=== PATIENT | female | born 1990 | race Caucasian/White ===

== ENCOUNTER 2017-06-23 20:47 | Emergency (ER) | payer OTHER ==
[2017-06-23 21:00] VITALS: BP 119/71
--- NOTE | 2017-06-23 21:53 | UC ---
Mare Dobbs Gabriel, scribed for Yaz Sanchez MD on 06/23/17 at 2129 . Abdominal Pain Female HPI - HPI Summary HPI Summary: This patient is a 26 year old F presenting to [facility] with a chief complaint of ABD pain/cramping since today at 1100. The patient rates the intermittent cramping pain 4/10 in severity. Patient reports mild intermittent dizziness, , ABD cramping, vaginal discharge, nausea, and diarrhea. Patient denies vaginal bleeding. PT reports mild discharge x 2 weeks. No vaginal itching , burning, odor. Patient is currently 8 weeks - has not had ultrasound for first OB appt. During her last she was taking fertility treatments and the child was born a month early, she has had no treatments this time. LNMP was April 25 and she had a yeast infection 3 weeks ago. Pt's medications reviewed this visit - History of Current Complaint Chief Complaint: UCAbdominalPain Stated Complaint: ABDOMINAL PAIN Time Seen by Provider: 06/23/17 20:53 Hx Obtained From: Patient Hx Last Menstrual Period: 04/18/16 Onset/Duration: Lasting Hours, Still Present Timing: Intermittent Episodes Lasting: Severity Initially: Mild Severity Currently: Mild Pain Intensity: 4 Pain Scale Used: 0-10 Numeric Associated Signs and Symptoms: Positive: Other: - dizziness, WELLS, cramping ABD, vaginal discharge, nausea, and diarrhea. Allergies/Adverse Reactions: Allergies Allergy/AdvReac Type Severity Reaction Status Date / Time Penicillins [PCN] Allergy Rash Verified 06/23/17 20:59 Home Medications: Home Medications Vitamin [Calna] 1 tab PO 06/23/17 [History] PMH/Surg Hx/FS Hx/Imm Hx Previously Healthy: Yes Other History Of: Negative For: HIV, Hepatitis B - Surgical History Surgical History: Yes Surgery Procedure, Year, and Place: gallbladder. disc surgery. lithotripsy. uterine polyps - Family History Known Family History: Negative: Cardiac Disease, Hypertension, Respiratory Disease, Seizure Disorder Family History: no cardio vascular issues in family lineage - Social History Occupation: Employed Full-time Lives: With Family Alcohol Use: None Substance Use Type: None Smoking Status (MU): Never Smoked Tobacco Amount Used/How Often: 2 cigs per week Review of Systems Constitutional: Negative Skin: Negative Eyes: Negative ENT: Negative Respiratory: Negative Gastrointestinal: Abdominal Pain, Diarrhea, Nausea Genitourinary: Other - vaginal discharge Neurological: Headache, Other - dizziness All Other Systems Reviewed And Are Negative: Yes Physical Exam Triage Information Reviewed: Yes Appearance: Well-Appearing, No Pain Distress, Well-Nourished Vital Signs: Initial Vital Signs Temp 99.0 F 06/23/17 20:55 Pulse 93 06/23/17 20:55 Resp 18 06/23/17 20:55 BP 119/71 06/23/17 20:55 Pulse Ox 100 06/23/17 20:55 Vital Signs Reviewed: Yes Eye Exam: Normal Eyes: Positive: Conjunctiva Clear ENT Exam: Normal ENT: Positive: Hearing grossly normal Neck exam: Normal Neck: Positive: Supple, Nontender, No Lymphadenopathy Respiratory Exam: Normal Respiratory: Positive: Chest non-tender, Lungs clear, Normal breath sounds, No respiratory distress, No accessory muscle use Cardiovascular Exam: Normal Cardiovascular: Positive: RRR, No Murmur, Pulses Normal Abdomen Description: Positive: Other: - abd soft +BS no guarding, no distension pelvic: no external lesion no odor scant, thin white discharge in vault no bleeding os closed no CMT os closed on bimanual Pt mild tender over right ovary. no massess appreciated Abd Pain Female Course/Dx - Course Course Of Treatment: Pt 8 week with intermittent lower abdominal cramping and nausea today. Pt denies vaginal bleeding. states mild episodes of dizziness. pt here with sister. pelvic exam complete - no blood, os closed. cultures taken. spoke with dr. Grullon in ED - pt will go by POV for further eval. pt will take pelvic samples with her - order in ED for testing. pt comfortable and in agreement with plan. sister with pt - Differential Dx/Diagnosis Provider Diagnoses: abdominal pain in Discharge - Discharge Plan Condition: Stable Disposition: OTHER Discharge Disposition Comment: POV to ED for further eval Patient Education Materials: Abdominal Pain in (ED) Referrals: Sheldon Pruitt [Primary Care Provider] - Additional Instructions: The doctor evaluated you today recommends you go directly to the emergency department for futher evaluation. This will likely include blood work and an ultrasound. Bring the bag with specimens with you to the hospital for testing. If you symptoms increase or you have ANY changes enroute, pipe puller and call 911 The documentation as recorded by the Mare pal Gabriel accurately reflects the service I personally performed and the decisions made by me, Yaz Sanchez MD.
== END 2017-06-23 21:53 ==
LOC: UCEAST 20:47
DX: O26.891 Other specified pregnancy related conditions, first trimester (principal); Z3A.08 8 weeks gestation of pregnancy; R10.9 Unspecified abdominal pain
CPT/HCPCS: 99212; G0463

== ENCOUNTER 2017-06-23 22:16 | Emergency (ER) | payer OTHER ==
[2017-06-24 00:30] LABS: ABS Basophils 0.1 10^3/ul (0-0.2); ABS Eosinophils 0.1 10^3/ul (0-0.6); ABS Monocytes 0.7 10^3/ul (0-0.8); ABS Neutrophils 9.6 10^3/ul (1.5-7.7); ABS Nucleated RBC 0 10^3/ul; Eosinophil % 0.6 % (0-6); Hematocrit 39 % (35-47); Hemoglobin 12.8 g/dl (12.0-16.0); Lymphocyte % 22.4 % (25-47); Mean Corpuscular HGB Conc 33 g/dl (31-36); Mean Corpuscular Hemoglobin 27 pg (27-31); Mean Corpuscular Volume 80 fL (80-97); Mean Platelet Volume 9 um3 (7.4-10.4); Nucleated Red Blood Cells % 0; Platelet Count 179 10^3/ul (150-450); Red Blood Count 4.83 10^6/ul (4.0-5.4); Red Cell Distribution Width 14 % (10.5-15); White Blood Count 13.5 10^3/ul (3.5-10.8)
--- NOTE | 2017-06-24 00:37 | ED ---
- HPI Summary HPI Summary: 26F apr 25 at 8 weeks presents with cramping today. She states she has been having intermittent nausea. She vomited last night but is not currently nauseous. She denies any fever. She denies any recent illness. She states pain is 4/10 at worst. She states she has been having vaginal discharge for past couple weeks. She denies any foul odor or itching. She admits to diarrhea yesterday. She denies any vaginal bleeding. She admits to intermittent dizziness. She denies any headache. She denies any change in appetite. She had pelvic done at with cultures. - History of Current Complaint Pain Intensity: 4 - Assessment Hx Now: Yes <Olga Fitch - Last Filed: 06/24/17 02:51> <Manuel Merritt - Last Filed: 06/24/17 20:42> - History of Current Complaint Chief Complaint: EDOBProblems Stated Complaint: 8 WKS PREG /CRAMPING Time Seen by Provider: 06/24/17 00:25 - Allergies/Home Medications Allergies/Adverse Reactions: Allergies Allergy/AdvReac Type Severity Reaction Status Date / Time Penicillins [PCN] Allergy Rash Verified 06/23/17 22:33 PMH/Surg Hx/FS Hx/Imm Hx Endocrine/Hematology History: Denies: Hx Anticoagulant Therapy Cardiovascular History: Denies: Hx Myocardial Infarction - Surgical History Surgery Procedure, Year, and Place: gallbladder. disc surgery. lithotripsy. uterine polyps - Immunization History Date of Influenza Vaccine: 02/2017 Infectious Disease History: No Infectious Disease History: Denies: Traveled Outside the [place] in Last 30 Days - Family History Known Family History: Positive: None Negative: Cardiac Disease, Hypertension, Respiratory Disease, Seizure Disorder, Blood Disorder Family History: no cardio vascular issues in family lineage - Social History Alcohol Use: None Substance Use Type: Reports: None Smoking Status (MU): Never Smoked Tobacco Amount Used/How Often: 2 cigs per week <Olga Fitch - Last Filed: 06/24/17 02:51> Review of Systems Negative: Fever Negative: Chest Pain Negative: Shortness Of Breath Positive: Abdominal Pain. Negative: Vomiting, Nausea All Other Systems Reviewed And Are Negative: Yes <Olga Fitch - Last Filed: 06/24/17 02:51> Physical Exam - Physical Exam Triage Information Reviewed: Yes Vital Signs Reviewed: Yes Appearance: Positive: Well-Appearing Skin: Positive: Warm, Dry Head/Face: Positive: Normal Head/Face Inspection Eyes: Positive: Normal, Conjunctiva Clear Respiratory/Lung Sounds: Positive: Clear to Auscultation, Breath Sounds Present Cardiovascular: Positive: Normal, RRR Abdomen Description: Positive: Nontender, Soft Bowel Sounds: Positive: Present Neurological: Positive: Normal Psychiatric: Positive: Normal <Olga Fitch - Last Filed: 06/24/17 02:51> Diagnostics - Vital Signs Vital Signs Temp Pulse Resp BP Pulse Ox 06/23/17 22:29 99.5 F 90 18 116/78 98 - Laboratory Lab Results: Lab Results 06/24/17 06/24/17 Range/Units 00:15 00:15 WBC 13.5 H (3.5-10.8) 10^3/ul RBC 4.83 (4.0-5.4) 10^6/ul Hgb 12.8 (12.0-16.0) g/dl Hct 39 (35-47) % MCV 80 (80-97) fL MCH 27 (27-31) pg MCHC 33 (31-36) g/dl RDW 14 (10.5-15) % Plt Count 179 (150-450) 10^3/ul MPV 9 (7.4-10.4) um3 Neut % (Auto) 71.3 (38-83) % Lymph % (Auto) 22.4 L (25-47) % [place] % (Auto) 5.2 (1-9) % Eos % (Auto) 0.6 (0-6) % Baso % (Auto) 0.5 (0-2) % Absolute Neuts (auto) 9.6 H (1.5-7.7) 10^3/ul Absolute Lymphs (auto) 3.0 (1.0-4.8) 10^3/ul Absolute Monos (auto) 0.7 (0-0.8) 10^3/ul Absolute Eos (auto) 0.1 (0-0.6) 10^3/ul Absolute Basos (auto) 0.1 (0-0.2) 10^3/ul Absolute Nucleated RBC 0 10^3/ul Nucleated RBC % 0 Blood Type O Positive Result Diagrams: 06/24/17 00:15 06/24/17 00:15 Lab Statement: Any lab studies that have been ordered have been reviewed, and results considered in the medical decision making process. - Ultrasound No standard instances Ultrasound Interpretation: Positive (See Comments) - single live intrauterine , gestation age 8 weeks 3 days, heart rate 161, close cervix. swubchornic hemorrhage. Ultrasound Interpretation Completed By: Radiologist <Olga Fitch - Last Filed: 06/24/17 02:51> - Vital Signs Vital Signs Temp Pulse Resp BP Pulse Ox 06/24/17 02:00 36.7 C 90 16 124/57 98 06/23/17 22:29 37.5 C 90 18 116/78 98 - Laboratory Lab Results: Lab Results 06/23/17 06/24/17 06/24/17 Range/Units 21:42 00:15 00:15 WBC (3.5-10.8) 10^3/ul RBC (4.0-5.4) 10^6/ul Hgb (12.0-16.0) g/dl Hct (35-47) % MCV (80-97) fL MCH (27-31) pg MCHC (31-36) g/dl RDW (10.5-15) % Plt Count (150-450) 10^3/ul MPV (7.4-10.4) um3 Neut % (Auto) (38-83) % Lymph % (Auto) (25-47) % [place] % (Auto) (1-9) % Eos % (Auto) (0-6) % Baso % (Auto) (0-2) % Absolute Neuts (auto) (1.5-7.7) 10^3/ul Absolute Lymphs (auto) (1.0-4.8) 10^3/ul Absolute Monos (auto) (0-0.8) 10^3/ul Absolute Eos (auto) (0-0.6) 10^3/ul Absolute Basos (auto) (0-0.2) 10^3/ul Absolute Nucleated RBC 10^3/ul Nucleated RBC % INR (Anticoag Therapy) 0.94 (0.77-1.02) APTT 30.7 (26.0-36.3) seconds Sodium (133-145) mmol/L Potassium (3.5-5.0) mmol/L Chloride (101-111) mmol/L Carbon Dioxide (22-32) mmol/L Anion Gap (2-11) mmol/L BUN (6-24) mg/dL Creatinine (0.51-0.95) mg/dL Est GFR ( Amer) (>60) Est GFR (Non-Af Amer) (>60) BUN/Creatinine Ratio (8-20) Glucose (70-100) mg/dL Calcium (8.6-10.3) mg/dL Total Bilirubin (0.2-1.0) mg/dL AST (13-39) U/L ALT (7-52) U/L Alkaline Phosphatase (34-104) U/L Total Protein (6.4-8.9) g/dL Albumin (3.2-5.2) g/dL Globulin (2-4) g/dL Albumin/Globulin Ratio (1-3) Beta HCG, Quant mIU/mL Urine Color Urine Appearance Urine pH (5-9) Ur Specific [place] (1.010-1.030) Urine Protein (Negative) Urine Ketones (Negative) Urine Blood (Negative) Urine Nitrate (Negative) Urine Bilirubin (Negative) Urine Urobilinogen (Negative) Ur Leukocyte Esterase (Negative) Urine Glucose (Negative) C.trachomatis (Amp Det) Pending N.gonorrhoeae (Amp Det) Pending T.vaginalis (Amp Det) Negative (Negative) Blood Type O Positive 06/24/17 06/24/17 06/24/17 Range/Units 00:15 00:15 01:50 WBC 13.5 H (3.5-10.8) 10^3/ul RBC 4.83 (4.0-5.4) 10^6/ul Hgb 12.8 (12.0-16.0) g/dl Hct 39 (35-47) % MCV 80 (80-97) fL MCH 27 (27-31) pg MCHC 33 (31-36) g/dl RDW 14 (10.5-15) % Plt Count 179 (150-450) 10^3/ul MPV 9 (7.4-10.4) um3 Neut % (Auto) 71.3 (38-83) % Lymph % (Auto) 22.4 L (25-47) % [place] % (Auto) 5.2 (1-9) % Eos % (Auto) 0.6 (0-6) % Baso % (Auto) 0.5 (0-2) % Absolute Neuts (auto) 9.6 H (1.5-7.7) 10^3/ul Absolute Lymphs (auto) 3.0 (1.0-4.8) 10^3/ul Absolute Monos (auto) 0.7 (0-0.8) 10^3/ul Absolute Eos (auto) 0.1 (0-0.6) 10^3/ul Absolute Basos (auto) 0.1 (0-0.2) 10^3/ul Absolute Nucleated RBC 0 10^3/ul Nucleated RBC % 0 INR (Anticoag Therapy) (0.77-1.02) APTT (26.0-36.3) seconds Sodium 135 (133-145) mmol/L Potassium 3.8 (3.5-5.0) mmol/L Chloride 103 (101-111) mmol/L Carbon Dioxide 24 (22-32) mmol/L Anion Gap 8 (2-11) mmol/L BUN 11 (6-24) mg/dL Creatinine 0.62 (0.51-0.95) mg/dL Est GFR ( Amer) 152.1 (>60) Est GFR (Non-Af Amer) 118.3 (>60) BUN/Creatinine Ratio 17.7 (8-20) Glucose 98 (70-100) mg/dL Calcium 9.5 (8.6-10.3) mg/dL Total Bilirubin 0.50 (0.2-1.0) mg/dL AST 12 L (13-39) U/L ALT 10 (7-52) U/L Alkaline Phosphatase 76 (34-104) U/L Total Protein 7.5 (6.4-8.9) g/dL Albumin 3.9 (3.2-5.2) g/dL Globulin 3.6 (2-4) g/dL Albumin/Globulin Ratio 1.1 (1-3) Beta HCG, Quant 16624.00 mIU/mL Urine Color Tita Urine Appearance Clear Urine pH 5.0 (5-9) Ur Specific [place] 1.028 (1.010-1.030) Urine Protein Negative (Negative) Urine Ketones 1+ H (Negative) Urine Blood Negative (Negative) Urine Nitrate Negative (Negative) Urine Bilirubin Negative (Negative) Urine Urobilinogen Negative (Negative) Ur Leukocyte Esterase Negative (Negative) Urine Glucose Negative (Negative) C.trachomatis (Amp Det) N.gonorrhoeae (Amp Det) T.vaginalis (Amp Det) (Negative) Blood Type Result Diagrams: 06/24/17 00:15 06/24/17 00:15 Lab Statement: Any lab studies that have been ordered have been reviewed, and results considered in the medical decision making process. <Manuel Merritt - Last Filed: 06/24/17 20:42> Course/Dx - Course Course Of Treatment: 26F apr 25 at 8 weeks presents with cramping today. She states she has been having intermittent nausea. She vomited last night but is not currently nauseous. She denies any fever. She denies any recent illness. She states pain is 4/10 at worst. She states she has been having vaginal discharge for past couple weeks. She denies any foul odor or itching. She admits to diarrhea yesterday. She denies any vaginal bleeding. She admits to intermittent dizziness. She denies any headache. She denies any change in appetite. She had pelvic done at with cultures. on exam abdomen soft nontender. u/s shows single live intrauterine . hcg [id number]. told to follow up with obgyn. patient understand and agrees with plan. - Differential Diagnosis/HQI/PQRI: Spontaneous , Threatened , Intrauterine <Olga Fitch - Last Filed: 06/24/17 02:51> <Manuel Merritt - Last Filed: 06/24/17 20:42> - Diagnoses Provider Diagnoses: Abdominal pain during in first trimester Discharge <Olga Fitch - Last Filed: 06/24/17 02:51> <Manuel Merritt - Last Filed: 06/24/17 20:42> - Discharge Plan Condition: Good Disposition: HOME Patient Education Materials: First Trimester (ED) Referrals: Sheldon Pruitt [Primary Care Provider] - Additional Instructions: Follow up with obgyn as may need to trend HCG levels Take tyenlol for pain every 6 hours Return to ED if develop any new or worsening symptoms
[2017-06-24 00:41] LABS: INR 0.94 (0.77-1.02)
[2017-06-24 00:42] LABS: EGFR Non-African American 118.3 (>60)
[2017-06-24 02:11] VITALS: BP 124/57
[2017-06-24 02:14] LABS: Urine Appearance Clear; Urine Blood Negative (Negative); Urine Color Amber; Urine Ketones 1+ (Negative); Urine Protein Negative (Negative); Urine Specific Gravity 1.028 (1.010-1.030); Urine Urobilinogen Negative (Negative)
--- NOTE | 2017-06-24 08:00 | RAD ---
HISTORY: Pelvic cramping in a woman who reports being 8 weeks . Last menstrual period is April 25, 2018. COMPARISONS: None TECHNIQUE: Multiple transverse and longitudinal ultrasound images were obtained of the pelvis using grayscale, color flow, spectral and M-mode sonographic imaging. FINDINGS: UTERUS: The uterus is normal in shape, size, contour, and echotexture. GESTATION: There is a single live intrauterine gestation. The crown-rump length measures 1.9 cm yielding a gestational age of 8 weeks and 3 days. The mean gestational sac diameter measures 3.0 centimeters yielding a gestational age of 8 weeks and 2 days. cardiac motion is detected at a rate of 161 beats per minute. There is an anechoic and avascular subchorionic fluid collection measuring approximately 1.2 x 1.1 x 1.1 cm. CUL-DE-SAC: There is no free fluid within the cul-de-sac. RIGHT OVARY: The right ovary measures 2.6 x 1.5 x 1.4 cm. LEFT OVARY: The left ovary measures 4.3 x 2.5 x 2.3 cm. IMPRESSION: 1. Single live intrauterine gestation with a crown-rump length yielding a gestational age of 8 weeks and 3 days. 2. Small subchorionic hemorrhage measuring 1.2 x 1.1 x 1.1 cm.
== END 2017-06-24 02:00 | disposition home or self-care (01) ==
LOC: ED 22:16
DX: O26.891 Other specified pregnancy related conditions, first trimester (principal); Z3A.08 8 weeks gestation of pregnancy; R42 Dizziness and giddiness; R11.10 Vomiting, unspecified
CPT/HCPCS: 36415; 76817; 80053; 81003; 84702; 85025; 85610; 85730; 86900; 86901; 87480; 87491; 87510; 87591; 87661; 99282

== ENCOUNTER 2017-11-22 09:35 | Emergency (ER) | payer OTHER ==
[2017-11-22 09:50] VITALS: BP 125/62
--- NOTE | 2017-11-22 10:48 | UC ---
Throat Pain/Nasal Sandor HPI - HPI Summary HPI Summary: 26 y/o female presents to the urgent care c/o sore throat and B/L ear pain for the past 3 days. Pt states pain w/ swallowing is 8/10. She also has clear nasal discharge. Pt has Hx of seasonal allergies. Pt has not taking anything to alleviate symptom. Pt denies fever, WELLS, rash, abdominal pain, N/V/ D. SOB chest pain. - History of Current Complaint Chief Complaint: UCGeneralIllness Stated Complaint: SORE THROAT Time Seen by Provider: 11/22/17 10:43 Hx Obtained From: Patient Hx Last Menstrual Period: Onset/Duration: Gradual Onset, Lasting Days - 3 days, Still Present, Worse Since - today Severity: Moderate Pain Intensity: 8 Pain Scale Used: 0-10 Numeric Cough: None Associated Signs & Symptoms: Positive: Sinus Discomfort, Nasal Discharge, Other - B/L ear pain Related History: Seasonal Allergies - Epiglottits Risk Factors Epiglottis Risk Factors: Negative - Allergies/Home Medications Allergies/Adverse Reactions: Allergies Allergy/AdvReac Type Severity Reaction Status Date / Time Penicillins Allergy Rash Verified 11/22/17 09:51 PMH/Surg Hx/FS Hx/Imm Hx Previously Healthy: Yes - Pt denies PMHX Other History Of: Negative For: HIV, Hepatitis B, Anticoagulant Therapy - Surgical History Surgical History: Yes Surgery Procedure, Year, and Place: gallbladder. disc surgery. lithotripsy. uterine polyps - Family History Known Family History: Positive: Hypertension, Diabetes Negative: Cardiac Disease, Respiratory Disease, Seizure Disorder, Blood Disorder Family History: no cardio vascular issues in family lineage - Social History Occupation: Employed Full-time Lives: With Family Alcohol Use: None Substance Use Type: None Smoking Status (MU): Never Smoked Tobacco Amount Used/How Often: 2 cigs per week Review of Systems Constitutional: Negative Skin: Negative Eyes: Negative ENT: Sore Throat, Ear Ache - B/L ear pain, Nasal Discharge, Sinus Congestion, Sinus Pain/Tenderness Respiratory: Negative Cardiovascular: Negative Gastrointestinal: Negative Genitourinary: Negative Motor: Negative Neurovascular: Negative Musculoskeletal: Negative Neurological: Negative Psychological: Negative Is Patient Immunocompromised?: No All Other Systems Reviewed And Are Negative: Yes Physical Exam - Summary Physical Exam Summary: Vitals: reviewed General: Well developed, well-nourished female patient with NAD. Head and face: Normocephalic and atraumatic, Positive tenderness over the frontal and maxillary sinuses.. Eyes: PERRLA, EOMI x 2. Normal conjunctiva. No eye discharge. ENT: Ears and TM with normal limits. Nose: edematous and erythematous nasal mucosa with with yellowish discharge and erythematous mucosa. Pharynx with erythema, no exudate. Neck: Supple, no JVD, no carotid bruits and no lymphadenopathy. Lungs: clear, no rales, no rhonchi, no wheezes. CVS: RRR, S1 and S2 present no murmurs or gallops appreciated. Abdomen: soft nontender with positive bowel sounds. Extremities: no edema noted. Neuro: WNL. Skin: warm and dry Triage Information Reviewed: Yes Vital Signs: Initial Vital Signs Temp 98.3 F 11/22/17 09:48 Pulse 91 11/22/17 09:48 Resp 18 11/22/17 09:48 BP 125/62 11/22/17 09:48 Pulse Ox 99 11/22/17 09:48 Throat Pain/Nasal Course/Dx - Course Course Of Treatment: 26 y/o female presents to the urgent care c/ o sore throat and B/L ear pain for the past 3 days. Pt states pain w/ swallowing is 8/10. She also has clear nasal discharge. Pt has Hx of seasonal allergies. Pt has not taking anything to alleviate symptom. Pt denies fever, WELLS , rasn, abdominal pain, N/V/D. SOB chest pain.Hx obtained. Pt w/ pharyngitis and rhinosinusitis on examination. Rapid strep ordered: negative. Pt advised to take Tylenol PO to alleviates symptoms of pain and swelling. Rx floanse nasal spray to clear sinuses. Pt advised to rest, eat well and avoid strenuous exercise. If symptoms do not improve or worsen advised to return to the urgent care or f/u with her PCP for further evaluation and treatment. Pt understood and agreed w/ D/C instructions. - Differential Dx/Diagnosis Differential Diagnosis/HQI/PQRI: Laryngitis, Mononucleosis, Otitis Media, Pharyngitis, Tonsillitis, URI Provider Diagnoses: 1-Acute viral pharyngitis. 2-Rhinosinusitis Discharge - Sign-Out/Discharge Documenting (check all that apply): Discharge/Admit/Transfer - D/C home - Discharge Plan Condition: Stable Disposition: HOME Prescriptions: Fluticasone NASAL SPRAY 50MCG* [Flonase NASAL SPRAY 50MCG*] 2 spray BOTH NARES DAILY #1 btl Patient Education Materials: Pharyngitis (ED), Sinusitis (ED) Forms: *Work Release Referrals: Bassam GIL,Sheldon Villavicencio [Primary Care Provider] - 2 Days Additional Instructions: 1- Please increase fluid intake and rest. 2-Use Flonase nasal spray and saline drops as directed to help drain fluid and clear sinuses 3-Take Acetaminophen for fever and pain. 4-Return to the clinic or call your PCP in 2-3 days if symptoms do not improve. 5- Strep test negative - Billing Disposition and Condition Condition: STABLE Disposition: Home
== END 2017-11-22 11:20 | disposition home or self-care (01) ==
LOC: UCEAST 09:35
DX: J02.8 Acute pharyngitis due to other specified organisms (principal); J32.9 Chronic sinusitis, unspecified; Z88.0 Allergy status to penicillin; Z72.0 Tobacco use; Z82.49 Family history of ischemic heart disease and other diseases of the circulatory system; Z83.3 Family history of diabetes mellitus
CPT/HCPCS: 87651; 99212; G0463

== ENCOUNTER 2018-01-31 06:43 | Inpatient (IN) | payer OTHER ==
[2018-01-31 08:11] LABS: Hematocrit 32 % (35-47); Hemoglobin 10.9 g/dl (12.0-16.0); Mean Corpuscular HGB Conc 34 g/dl (31-36); Mean Corpuscular Hemoglobin 27 pg (27-31); Mean Corpuscular Volume 79 fL (80-97); Mean Platelet Volume 10.9 um3 (7.4-10.4); Platelet Count 114 10^3/ul (150-450); Red Blood Count 4.04 10^6/ul (4.00-5.40); Red Cell Distribution Width 15 % (10.5-15); White Blood Count 10.6 10^3/ul (3.5-10.8)
--- NOTE | 2018-01-31 09:28 | HP ---
General Information - General Information Maternal Age: 27 Grav: 2 Para: 1 SAB: 0 IEA: 0 Estimated Due Date: 01/30/18 Determined By: LMP Maternal Blood Type and Rh: O Positive - Results this Serology/RPR Result: Non-Reactive Rubella Result: Immune HBsAg Result: Negative HIV Result: Negative GBS Culture Result: Negative Past Medical History Delivery History: Hx Uncomplicated Vaginal Delivery Pertinent Past Medical History: See Records Pertinent Past Surgical History: See Records Pertinent Family History: Non-Contributory - Antepartal Records Antepartal Records: Reviewed, Complicated by: - obesity Review of Systems Constitutional: Comfortable CV Complaint: No Respiratory: Shortness of Breath: No Gastrointestinal: No Nausea/Vomiting Genitourinary: No Dysuria, No Bleeding, No Leaking Fluid Musculoskeletal: No Complaint Neurological: No Headache Movement: Normal Exam Allergies/Adverse Reactions: Allergies Penicillins Allergy (Verified 11/22/17 09:51) Rash Vital Signs 01/31/18 07:15 Temperature 98.9 F Pulse Rate 65 Respiratory 18 Rate Blood Pressure 130/81 (mmHg) O2 Sat by Pulse 100 Oximetry Lab Values - Entire Visit: Laboratory Tests 01/31/18 01/31/18 07:38 07:38 WBC 10.6 RBC 4.04 Hgb 10.9 L Hct 32 L MCV 79 L MCH 27 MCHC 34 RDW 15 Plt Count 114 L MPV 10.9 H Blood Type O Positive Antibody Screen Negative - Measurements Height: 5 ft 3 in Weight: 309 lb Weight in lbs: [phone] Body Mass Index (BMI): 54.7 Pre- Weight: 286 lb Weight Gained This : 23 lbs and 0 ozs - Abdominal Exam Abdomen Exam: Non-Tender - Ultrasound/Biophysical Profile Ultrasound Status: Not Done Targeted Exam Findings Cervical Exam: 2cm Effacement: 80% Station: -2 Presenting Part: Vertex Membrane Status: Intact EFM Findings - External Monitor Findings Baseline Heart Rate: 140 External Monitor Findings: Accelerations Present, Variability Moderate Contractions: Mild - q 3-4 ' Assessment/Plan - Obstetrical Risk Factors Obstetrical Risk Factors: Obesity - Plan Plan: Admit - Anticipate Vaginal Delivery - will augment labor with pitocin
[2018-01-31] MEDS ORDERED: Oxytocin in LR* 20 UNITS/1,000 ML BAG IVPB ONE (09:36)
[2018-01-31] MEDS ORDERED: Oxytocin in LR* 20 UNITS/1,000 ML BAG IVPB SCH ×2 (10:00→18:00)
[2018-01-31] MEDS ORDERED: OBEPIDURAL* 250 ML EPIDURAL ONE (14:35)
[2018-01-31] MEDS ORDERED: fentaNYL* 50 MCG/ML 2 ML VIAL (100 MCG VIAL) ONE (14:46)
[2018-01-31] MEDS ORDERED: Sodium Citrate/Citric Acid* 15 ML UDC PO PRN (15:49)
[2018-01-31] MEDS ORDERED: Famotidine TAB* 20 MG PO PRN (15:49)
[2018-01-31] MEDS ORDERED: Phenylephrine IV* 40 MCG/ML 10 ML SYRINGE IV PUSH PRN ×2 (15:49)
[2018-01-31] MEDS ORDERED: OBEPIDURAL* 250 ML EPIDURAL SCH (16:00)
[2018-01-31] MEDS ORDERED: Witch Hazel PAD* JAR TOPICAL PRN (17:08)
[2018-01-31] MEDS ORDERED: Glycerin ADULT SUPP PR PRN (17:08)
[2018-01-31] MEDS ORDERED: Dibucaine 1% 28.35 GM TUBE PR PRN (17:08)
[2018-01-31] MEDS ORDERED: Simethicone TAB* 80 MG TAB.CHEW PO SCH (17:30)
[2018-01-31] MEDS: Ibuprofen TAB* 600 MG PO PRN (19:25)
[2018-01-31] MEDS: Docusate CAP* 100 MG PO SCH (20:20)
[2018-02-01] MEDS: Acetaminophen TAB* 325 MG PO PRN ×3 (00:24→20:02)
[2018-02-01] MEDS: Ibuprofen TAB* 600 MG PO PRN ×4 (03:30→23:46)
[2018-02-01 07:42] LABS: ABS Basophils 0.1 10^3/ul (0-0.2); ABS Eosinophils 0.1 10^3/ul (0-0.6); ABS Lymphocytes 3.1 10^3/ul (1.0-4.8); ABS Monocytes 0.7 10^3/ul (0-0.8); ABS Nucleated RBC 0 10^3/ul; Eosinophil % 0.7 % (0-6); Hematocrit 30 % (35-47); Hemoglobin 10.1 g/dl (12.0-16.0); Lymphocyte % 26.1 % (25-47); Mean Corpuscular HGB Conc 33 g/dl (31-36); Mean Corpuscular Hemoglobin 26 pg (27-31); Mean Corpuscular Volume 79 fL (80-97); Mean Platelet Volume 10.8 um3 (7.4-10.4); Nucleated Red Blood Cells % 0.1; Platelet Count 98 10^3/ul (150-450); Red Blood Count 3.83 10^6/ul (4.00-5.40); Red Cell Distribution Width 15 % (10.5-15)
[2018-02-01] MEDS ORDERED: Ferrous Gluconate TAB* 324 MG TAB PO SCH (09:00)
[2018-02-01] MEDS ORDERED: PRENATAL VITAMIN PO SCH (09:00)
[2018-02-01] MEDS: Docusate CAP* 100 MG PO SCH ×3 (10:01→20:02)
[2018-02-02] MEDS: Acetaminophen TAB* 325 MG PO PRN (06:12)
[2018-02-02] MEDS: Ibuprofen TAB* 600 MG PO PRN (06:13)
[2018-02-02 06:21] LABS: Hematocrit 31 % (35-47); Hemoglobin 10.3 g/dl (12.0-16.0); Mean Corpuscular HGB Conc 34 g/dl (31-36); Mean Corpuscular Hemoglobin 27 pg (27-31); Mean Corpuscular Volume 80 fL (80-97); Mean Platelet Volume 10.9 um3 (7.4-10.4); Platelet Count 102 10^3/ul (150-450); Red Blood Count 3.85 10^6/ul (4.00-5.40); Red Cell Distribution Width 15 % (10.5-15)
[2018-02-02] MEDS: Docusate CAP* 100 MG PO SCH (08:38)
[2018-02-02 08:40] VITALS: BP 123/74
== END 2018-02-02 12:15 | disposition home or self-care (01) | DRG 775 ==
LOC: MCHOBOUT 06:43 → MCHOB 07:26
PROVIDERS: ADMIT Obstetrics & Gynecology; ATTEND Obstetrics & Gynecology
PROC: 10E0XZZ Delivery of Products of Conception, External Approach (ICD-10-PCS; principal; 2018-01-31)
PROC: 10907ZC Drainage of Amniotic Fluid, Therapeutic from Products of Conception, Via Natural or Artificial Opening (ICD-10-PCS; 2018-01-31)
PROC: 4A1H7FZ Monitoring of Products of Conception, Cardiac Rhythm, Via Natural or Artificial Opening (ICD-10-PCS; 2018-01-31)
PROC: 0HQ9XZZ Repair Perineum Skin, External Approach (ICD-10-PCS; 2018-01-31)
DX: O48.0 Post-term pregnancy (principal); Z68.43 Body mass index [BMI] 50.0-59.9, adult; Z3A.40 40 weeks gestation of pregnancy; O99.214 Obesity complicating childbirth; E66.9 Obesity, unspecified; O70.0 First degree perineal laceration during delivery; O99.344 Other mental disorders complicating childbirth; F41.8 Other specified anxiety disorders; O13.4 Gestational [pregnancy-induced] hypertension without significant proteinuria, complicating childbirth; Z37.0 Single live birth
CPT/HCPCS: 36415; 85025; 85027; 86850; 86900; 86901; A9270-GY; J3010

== ENCOUNTER 2018-03-08 08:34 | Emergency (ER) | payer OTHER ==
--- OUTSIDE RECORDS SUMMARY | 2018-03-08 08:39 | XMS REPORT ---
:1990 External Reference #:[id number] Author Organization [facility] Address [address] [place] [id number] Phone [phone] Care Team Providers Name Role Phone Helio Garcia M.D. Primary Care Physician Unavailable Payers Type Date Identification Numbers Payment Provider Subscriber Commercial Policy Number: [id number] [facility] Elza Montalvo PayID: [id number] [address] [place] [address] Problems Description No Information Family History Date Family Member(s) Problem(s) Comments Father Diabetes insulin dependent Father Hypertension Mother Asthma First Daughter A&W Second Daughter A&W First Sister A&W Second Sister A&W Paternal Grandfather A&W Paternal Grandmother due to Cancer () Maternal Grandfather due to Stroke () Maternal Grandmother due to dementia () Maternal Grandmother Parkinson's Disease Social History Type Date Description Comments Education Highest level completed, 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 Marital Status Lives With Daughters Pets 1 cat Pets 1 dog Occupation [employer] Cigarette Use Former Cigarette Smoker Quit 01/2017 ETOH Use Denies alcohol use Recreational Drug Use Denies Drug Use Daily Caffeine Consumes on average 1 cup of coffee per day Daily Caffeine Consumes on average 1 soda per day Seat Belt/Car Seat Always uses seat belt STD's Chlamydia Allergies, Adverse Reactions, Alerts Date Description Reaction Status Severity Comments 07/14/2017 Penicillin active Rash, Itchy hands Medications Medication Date Status Form Strength Qnty SIG Indications Ordering Provider Lexapro Active Tablets 10mg 30tabs take one Yaz 018 pill by carol Jenkins CNM daily. Butalbital/Yossi Active Tablets 50-325-40mg 14tabs take 1-2 Phaelon taminophen/Caf 018 tabs by MD Kaitlin feine mouth q6 hours as needed for headache Active 1 po qd Unknown Vitamin 000 Fluconazole Hx Tablets 150mg 1tabs take one Phaelon 018 - tab by MD Kaitlin mouth now 018 Immunizations CPT Code Status Date Vaccine Lot # [id number] Given 11/03/2017 Tetnus, Diptheria Toxoids And Acellular Pertussis, [id number] PT > 7Yrs Old Vital Signs Date Vital Result Comment 02/26/2018 BP Systolic 114 mmHg BP Diastolic 70 mmHg Height 63.5 inches 5'3.50" Weight 274.00 lb BMI (Body Mass Index) 47.8 kg/m2 Last Menstrual Period [id number] 2 Parity 2 02/12/2018 BP Systolic 122 mmHg BP Diastolic 84 mmHg Height 63.5 inches 5'3.50" Weight 227.00 lb BMI (Body Mass Index) 39.6 kg/m2 Last Menstrual Period 7549500 2 Parity 2 07/14/2017 BP Systolic 112 mmHg BP Diastolic 66 mmHg Height 63.5 inches 5'3.50" Weight 286.00 lb BMI (Body Mass Index) 49.9 kg/m2 Last Menstrual Period 5469308 2 Parity 1 Results Test Date Test Result H/L Range Note Total Protein 24HR Urine 01/28/2018 Urine Collection Time 24 hr 1 Urine Total Volume 1350 mL 1 Urine Random Total Protein 17 mg/dL 1 Urine Total Protein/24HR 229 mg/24Hr High 0-165 1 CBC Auto Diff 01/27/2018 White Blood Count 9.4 10^3/uL 3.5-10.8 Red Blood Count 4.20 10^6/uL 4.00-5.40 Hemoglobin 11.0 g/dL Low 12.0-16.0 Hematocrit 33 % Low 35-47 Mean Corpuscular Volume 79 fL Low 80-97 Mean Corpuscular Hemoglobin 26 pg Low 27-31 Mean Corpuscular HGB Conc 33 g/dL 31-36 Red Cell Distribution Width 15 % 10.5-15 Platelet Count 103 10^3/uL Low 150-450 Mean Platelet Volume 10.7 um3 High 7.4-10.4 Abs Neutrophils 6.8 10^3/uL 1.5-7.7 Abs Lymphocytes 1.9 10^3/uL 1.0-4.8 Abs Monocytes 0.6 10^3/uL 0-0.8 Abs Eosinophils 0 10^3/uL 0-0.6 Abs Basophils 0 10^3/uL 0-0.2 Abs Nucleated RBC 0 10^3/uL Granulocyte % 72.2 % 38-83 Lymphocyte % 20.6 % Low 25-47 Monocyte % 6.3 % 0-7 Eosinophil % 0.5 % 0-6 Basophil % 0.4 % 0-2 Nucleated Red Blood Cells % 0 Creatinine 01/27/2018 Creatinine 0.43 mg/dL Low 0.51-0.95 Egfr Non- 178.9 >60 Egfr 216.5 >60 2 Laboratory test finding 01/27/2018 Uric Acid 4.9 mg/dL 2.3-6.6 Alt (SGPT) 9 U/L 7-52 Ast (Sgot) 15 U/L 13-39 CBC With No Diff 01/20/2018 White Blood Count 9.8 10^3/uL 3.5-10.8 Red Blood Count 4.41 10^6/uL 4.00-5.40 Hemoglobin 11.5 g/dL Low 12.0-16.0 Hematocrit 35 % 35-47 Mean Corpuscular Volume 79 fL Low 80-97 Mean Corpuscular Hemoglobin 26 pg Low 27-31 Mean Corpuscular HGB Conc 33 g/dL 31-36 Red Cell Distribution Width 14 % 10.5-15 Platelet Count 111 10^3/uL Low 150-450 Mean Platelet Volume 11.0 um3 High 7.4-10.4 Laboratory test finding 12/28/2017 Group B Strep SEE RESULT BELOW 3 Culture Screen Laboratory test finding 11/03/2017 Glucose 1 HR Post 112 mg/dL 70-160 4 Prandial CBC With No Diff 11/03/2017 White Blood Count 10.1 10^3/uL 3.5-10.8 Red Blood Count 4.15 10^6/uL 4.0-5.4 Hemoglobin 11.3 g/dL Low 12.0-16.0 Hematocrit 34 % Low 35-47 Mean Corpuscular Volume 81 fL 80-97 Mean Corpuscular Hemoglobin 27 pg 27-31 Mean Corpuscular HGB Conc 34 g/dL 31-36 Red Cell Distribution Width 14 % 10.5-15 Platelet Count 119 10^3/uL Low 150-450 Mean Platelet Volume 10.9 um3 High 7.4-10.4 Lead 08/11/2017 Lead,Venous, B <1.0 5 HIV 1/2 AB Evaluation 08/11/2017 HIV 1 2 Antibody Nonreactive Nonreactive 6 Type And Screen 08/11/2017 Patient Blood Type O Positive Antibody Screen NEGATIVE CBC With No Diff 08/11/2017 White Blood Count 7.2 10^3/uL 3.5-10.8 Red Blood Count 4.27 10^6/uL 4.0-5.4 Hemoglobin 11.6 g/dL Low 12.0-16.0 Hematocrit 34 % Low 35-47 Mean Corpuscular Volume 80 fL 80-97 Mean Corpuscular Hemoglobin 27 pg 27-31 Mean Corpuscular HGB Conc 34 g/dL 31-36 Red Cell Distribution Width 13 % 10.5-15 Platelet Count 132 10^3/uL Low 150-450 Mean Platelet Volume 10 um3 7.4-10.4 PNL No Urine 08/11/2017 Rubella Screen Immune IU/mL Immune 7 Hemoglobin A1c 4.9 % 4.0-5.6 8 Hepatitis B Surface Ag Nonreactive Nonreactive 9 Syphillis Igg W/Reflex RPR Nonreactive Nonreactive 10 CF + Sma 08/11/2017 cystic fibrosis Negative spinal muscular atrophy Negative 11 PDF Report SEE IMAGE GC/Chlamydia Dna Probe 08/11/2017 Chlamydia trachomatis Rna Negative Negative Neisseria gonorrhoeae (GC) Rna Negative Negative Urine Drug Comp 20 Test 08/11/2017 Urine Amphetamine Negative ng/mL 12 Urine Barbiturates Negative ng/mL 13 Urine Benzodiazepines Negative ng/mL 14 Urine Cocaine Negative ng/mL 15 Urine Phencyclidine Negative ng/mL Cutoff: 25 Urine Tetrahydrocannabinol Negative ng/mL Cutoff: 50 16 Creatinine, Urine 179.1 mg/dL Specific Lander 1.016 pH 6.7 Oxidants Negative 17 Adulterants Comment Normal Codeine, Ur Not Detected ng/mL Cutoff: 25 18 Bliyydl-8-kkig-glucuronide, Ur Not Detected ng/mL 19 Morphine, Ur Not Detected ng/mL Cutoff: 25 20 Bmwcevoy-2-dodj-glucuronide, U Not Detected ng/mL 21 6-monoacetylmorphine, Ur Not Detected ng/mL Cutoff: 25 22 Hydrocodone, Ur Not Detected ng/mL Cutoff: 25 23 Norhydrocodone, Ur Not Detected ng/mL Cutoff: 25 24 Dihydrocodeine, Ur Not Detected ng/mL Cutoff: 25 25 Hydromorphone, Ur Not Detected ng/mL Cutoff: 25 26 Pnfktrjhrlivv6eypixupijjyachq Not Detected ng/mL 27 Oxycodone, Ur Not Detected ng/mL Cutoff: 25 28 Noroxycodone, Ur Not Detected ng/mL Cutoff: 25 29 Oxymorphone, Ur Not Detected ng/mL Cutoff: 25 30 Xxwanvtauhi-2-etvi-glucuronide Not Detected ng/mL 31 Noroxymorphone, Ur Not Detected ng/mL Cutoff: 25 32 Fentanyl, Ur Not Detected ng/mL Cutoff: 2 33 Norfentanyl, Ur Not Detected ng/mL Cutoff: 2 34 Meperidine, Ur Not Detected ng/mL Cutoff: 25 35 Normeperidine, Ur Not Detected ng/mL Cutoff: 25 36 Naloxone, Ur Not Detected ng/mL Cutoff: 25 37 Wpwlcoiy-1-yaaj-glucuronide, U Not Detected ng/mL 38 Methadone, Ur Not Detected ng/mL Cutoff: 25 39 Eddp, Ur Not Detected ng/mL Cutoff: 25 40 Propoxyphene, Ur Not Detected ng/mL Cutoff: 25 41 Norpropoxyphene, Ur Not Detected ng/mL Cutoff: 25 42 Tramadol, Ur Not Detected ng/mL Cutoff: 25 43 O-desmethyltramadol, Ur Not Detected ng/mL Cutoff: 25 44 Tapentadol, Ur Not Detected ng/mL Cutoff: 25 45 N-desmethyltapentadol, Ur Not Detected ng/mL Cutoff: 50 46 Txofdummob-hxzb-ufaoadcbxwf, U Not Detected ng/mL 47 Buprenorphine, Ur Not Detected ng/mL Cutoff: 5 48 Norbuprenorphine, Ur Not Detected ng/mL Cutoff: 5 49 Norbuprenorphine glucuronide Not Detected ng/mL Cutoff: 20 50 Opioid Interpretation See Comment 51 Laboratory test 07/14/2017 Cytology SEE RESULT BELOW 52 finding GC/Chlamydia Dna 07/14/2017 Chlamydia trachomatis Negative Negative Probe Rna Neisseria gonorrhoeae (GC) Rna Negative Negative Urine Culture And Sensitivities 07/14/2017 Urine Culture SEE RESULT BELOW 53 1 URINE COLLECTED FROM 01/27/18 1130-01/28/18 1130 2 Because ethnic data is not always readily available, this report includes an eGFR for both -Americans and non- Americans. The National Kidney Disease Education Program (NKDEP) does not endorse the use of the MDRD equation for patients that are not between the ages of 18 and 70, are , have extremes of body size, muscle mass, or nutritional status, or are non- or non-. According to the National Kidney Foundation, irrespective of diagnosis, the stage of the disease is based on the level of kidney function: Stage Description GFR(mL/min/1.73 m(2)) 1 Kidney damage with normal or decreased GFR 90 2 Kidney damage with mild decrease in GFR 60-89 3 Moderate decrease in GFR 30-59 4 Severe decrease in GFR 15-29 5 Kidney failure <15 (or dialysis) 3 SEE RESULT BELOW Name: ELZA MONTALVO : [address]: Dimitris Madrigal MD Acct: [id number] Unit: [id number] AGE: 27 Location: [facility] Re12/28/17 SEX: F Status: DEP REF SPEC: [id number] STACEY: 12/28/17-2341 [facility] DR: Dimitris Madrigal MD REQ: [id number] RECD: 12/28/17 STATUS: COMP OTHR DR: Sheldon Banegas [place] _ SOURCE: CER/VAG/RE SPDESC: ORDERED: Grp B Strp Scrn QUERIES: Is patient penicillin allergic and/or sensitivities needed? N Procedure Result Reported Site Group B Strep Culture Screen Final 12/30/17- 1115 ML Group B Strep Screen Negative * ML - Main Lab . END OF REPORT DEPARTMENT OF PATHOLOGY, [address] [place] [address] Everton Jaffe M.D. Director [facility] # [id number] Lead, Venous, B <1.0 mcg/dL 0.0-4.9 ADDITIONAL INFORMATION Testing performed by Inductively Coupled Plasma-Mass Spectrometry (ICP-MS). This test was developed and its performance characteristics determined by [facility] in a manner consistent with CLIA requirements. This test has not been cleared or approved by the U.S. Food and Drug Administration. Venous/Capillary Venous Patient Street Address [address] [facility] Patient 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 Health Care Provider Name DMITRIVALERIE [facility] Care Provider Street Address [address] [facility] Health Care Provider [facility] Care Provider [facility] Health Care Provider Zip Code [address] Health Care Provider Phone [phone] Submitting Laboratory Test Performed by: [address] [address] 6 It is recognized that currently available assays for the detection of antibodies to HIV-1 and/or HIV-2 may not detect all infected individuals. HIV antibodies may be undetectable in some stages of the infection and in some clinical conditions. The performance of this assay has not been established for populations of infants or children. Assayed by Chemiluminescence Microparticle Immunoassay on the Siemens Advia Centaur CP. Values obtained with different methods or kits cannot be used interchangeably.The diagnostic specificity of the ADVIA Centaur 1/O/2 Enhanced assay in the low risk population was 99.90% (6052/6058) with a 95% confidence interval of 99.78 to 99.96%. 7 [id number] 8 Therapeutic target for the treatment of diabetes mellitus patients is <7% HBA1C, and in selective patients <6.0%. Please refer to [place] [employer] Association diabetic care guidelines for further information. 9 [id number] 10 Warning: A positive result is not useful for establishing a diagnosis of syphilis. In most situations, such a result may reflect a prior treated infection; a negative result can exclude a diagnosis of syphilis except for incubating or early primary disease. 11 Negative result: Negative for [id number] SNP and SMN1: 2 copies. 12 REFERENCE VALUE Cutoff: 500 13 REFERENCE VALUE Cutoff: 200 14 REFERENCE VALUE Cutoff: 100 15 REFERENCE VALUE Cutoff: 150 16 ADDITIONAL INFORMATION This report is intended for use in clinical monitoring or management of patients. It is not intended for use in employment-related testing. 17 REFERENCE VALUE Cutoff: 200 mg/L 18 Tylenol 3 19 Metabolite of codeine REFERENCE VALUE Cutoff: 100 20 Rachael Madrid, Contin; Also a minor metabolite (10%) of codeine and can be seen in low concentrations (<2,000 ng/mL) with poppy seed ingestion. 21 Metabolite of morphine REFERENCE VALUE Cutoff: 100 22 Metabolite of heroin 23 Lortab, [place], Vicodin; Also a very minor metabolite of codeine and impurity (<1%) of oxycodone. 24 Metabolite of hydrocodone 25 Metabolite of hydrocodone 26 Dilaudid, Exalgo; Also a metabolite of hydrocodone and a minor (<5%) metabolite of morphine. 27 Metabolite of hydromorphone REFERENCE VALUE Cutoff: 100 28 Endocet, Percocet, Oxycontin 29 Metabolite of oxycodone 30 Numorphan, Opana; Also a metabolite of oxycodone. 31 Metabolite of oxymorphone REFERENCE VALUE Cutoff: 100 32 Metabolite of oxymorphone 33 Actiq, Duragesic, Fentora 34 Metabolite of fentanyl 35 Demerol 36 Metabolite of meperidine 37 Narcan 38 Metabolite of naloxone REFERENCE VALUE Cutoff: 100 39 Dolophine 40 Metabolite of methadone 41 Darvon, Darvocet 42 Metabolite of propoxyphene 43 Tradol, Ultram, Ultracet 44 Metabolite of tramadol 45 Nucynta 46 Metabolite of tapentadol 47 Metabolite of tapentadol REFERENCE VALUE Cutoff: 100 48 Buprenex, Suboxone 49 Metabolite of buprenorphine 50 Metabolite of buprenorphine 51 No opioids were detected. The absence of expected drug(s) and/or drug metabolite(s) may indicate non-compliance, altered pharmacokinetics, inappropriate timing of specimen collection relative to drug administration, diluted/adulterated urine, or limitations of testing. ADDITIONAL INFORMATION This test was developed and its performance characteristics determined by [facility] in a manner consistent with CLIA requirements. This test has not been cleared or approved by the U.S. Food and Drug Administration. Test Performed by: [facility] [address] [place] [address] 52 SEE RESULT BELOW Name: SELVINELZA : [address]: Nabeel Mchugh CNM Acct: [id number] Unit: [id number] AGE: 26 Location: [facility] Re07/14/17 SEX: F Status: REG REF SPEC: [id number] STACEY: 07/14/17-[address]: Nabeel CRAMER REQ: [id number] RECD: 07/14/176697 STATUS: SOUT _ ORDERED: TP IMAGE ANAL COMMENTS: [id number] Negative for Intraepithelial lesion or Malignancy A. Ectocervical/Endocervical Specimen Adequacy: Satisfactory of evaluation Transformation zone component identified Patient Information: HPV: Thin Layer Pap Test w/reflex to high risk HPV RNA testing when ASCUS Actual Specimen Date: 07/14/17 Last Menstrual Date: 04/25/17 Spec Date if unknown: unknown ?: Y Post Menopausal?: N Hysterectomy?: N Signed (signature on file) LA Agrawal(ASCP) 07/15 1761 This Pap test was evaluated with the assistance of the IT MOVES ITPrep Test Imaging System. Due to cytologic findings at the hunter guide microscope, comprehensive manual rescreening by a Support Services Specialist may be required. The Pap Smear is a screening test designed to aid in the detection of premalignant and malignant conditions of the uterine cervix. It is not a diagnostic procedure and should not be used as the sole means of detecting cervical cancer. Both false- positive and false- negative reports do occur. Depending on your risk status, a Pap smear should be obtained and evaluated every 1-3 years. END OF REPORT * ML=Testing performed at Main Lab DEPARTMENT OF PATHOLOGY, [address] [place] [address] Everton Jaffe M.D. Director [facility] # [id number] 53 SEE RESULT BELOW Name: ELZA MONTALVO : [address]: Nabeel Mchugh [facility] Acct: [id number] Unit: [id number] AGE: 26 Location: [facility] Re07/14/17 SEX: F Status: REG REF SPEC: [id number] STACEY: 07/14/17-[address]: Nabeel Mchugh [facility] REQ: [id number] RECD: 07/14/17 STATUS: COMP _ SOURCE: URINE [facility]: ORDERED: Urine Culture COMMENTS: [id number] Urine Source: Random Procedure Result Reported Site Urine Culture Final 07/16/17- 0855 ML No Growth (<1,000 CFU/mL) * ML - MAIN LAB ([facility]) . END OF REPORT * ML=Testing performed at Main Lab DEPARTMENT OF PATHOLOGY, [address] [place] [address] Everton Jaffe M.D. Director [facility] # [id number] Procedures Date CPT Code Description Status 01/31/2018 48141 Obstetric Care Routine Completed 01/27/2018 16149 Echography Uterus Limited Completed 01/27/2018 70752 Non-Stress Test Completed 01/20/2018 95877 Echography Uterus Limited Completed 12/28/2017 35864 Echography Uterus Limited Completed 12/28/2017 21031 Non-Stress Test Completed 12/18/2017 86724 Biophysical Profile Without Non Stress Test Completed 12/18/2017 63596 Echography Uterus Follow-Up Or Repeat Completed 09/14/2017 98970 Echography Uterus Complete Completed 07/14/2017 53367 OB Ultrasound First Trimester Completed Encounters Type Date Location Provider CPT E/M Dx Office Visit 01/27/2018 8:44a [place] [address] R03.0 Office Visit 12/28/2017 8:04a [place] [address] O47.03 Plan of Care Future Appointment(s):03/03/2018 3:30 pm - Cassidy Samuel MD at [facility] Pcvoqp4902/26/2018 - Yaz Jenkins, CNMO90.6 mood disturbance
--- OUTSIDE RECORDS SUMMARY | 2018-03-08 08:40 | XMS REPORT ---
:1990 External Reference #:[id number] Author Organization [facility] Address [address] [place] [id number] Phone [phone] Care Team Providers Name Role Phone Helio Garcia M.D. Primary Care Physician Unavailable Payers Type Date Identification Numbers Payment Provider Subscriber Commercial Policy Number: [id number] [facility] Elza Montalvo PayID: [id number] [address] [place] [address] Problems Description No Information Family History Date Family Member(s) Problem(s) Comments Father Diabetes insulin dependent Father Hypertension Mother Asthma First Daughter A&W First Sister A&W Second Sister A&W Paternal Grandfather A&W Paternal Grandmother due to Cancer () Maternal Grandfather due to Stroke () Maternal Grandmother due to dementia () Maternal Grandmother Parkinson's Disease Social History Type Date Description Comments Education Highest level completed, 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 Butalbital/Yossi Active Tablets 50-325-40mg 14tabs take 1-2 Phaelon taminophen/Caf 018 tabs by MD Kaitlin feine mouth q6 hours as needed for headache Active 1 po qd Unknown Vitamin 000 Fluconazole Hx Tablets 150mg 1tabs take one Phaelon 018 - tab by MD Kaitlin mouth now 018 Immunizations CPT Code Status Date Vaccine Lot # [id number] Given 11/03/2017 Tetnus, Diptheria Toxoids And Acellular Pertussis, [id number] PT > 7Yrs Old Vital Signs Date Vital Result Comment 02/12/2018 BP Systolic 122 mmHg BP Diastolic 84 mmHg Height 63.5 inches 5'3.50" Weight 227.00 lb BMI (Body Mass Index) 39.6 kg/m2 Last Menstrual Period 1028698 2 Parity 2 07/14/2017 BP Systolic 112 mmHg BP Diastolic 66 mmHg Height 63.5 inches 5'3.50" Weight 286.00 lb BMI (Body Mass Index) 49.9 kg/m2 Last Menstrual Period 0096385 2 Parity 1 Results Test Date Test [...] 50 16 Creatinine, Urine 179.1 mg/dL Specific [place] 1.016 pH 6.7 Oxidants Negative 17 Adulterants Comment Normal Codeine, Ur Not Detected ng/mL Cutoff: 25 18 Nfwtddk-4-mfih-glucuronide, Ur Not Detected ng/mL 19 Morphine, Ur Not Detected ng/mL Cutoff: 25 20 Qlbevycb-3-zime-glucuronide, U Not Detected ng/mL 21 6-monoacetylmorphine, Ur Not Detected ng/mL Cutoff: 25 22 Hydrocodone, Ur Not Detected ng/mL Cutoff: 25 23 Norhydrocodone, Ur Not Detected ng/mL Cutoff: 25 24 Dihydrocodeine, Ur Not Detected ng/mL Cutoff: 25 25 Hydromorphone, Ur Not Detected ng/mL Cutoff: 25 26 Rkdzksqgelkng2qubjphtsyisiyji Not Detected ng/mL 27 Oxycodone, Ur Not Detected ng/mL Cutoff: 25 28 Noroxycodone, Ur Not Detected ng/mL Cutoff: 25 29 Oxymorphone, Ur Not Detected ng/mL Cutoff: 25 30 Ckqfkhmumvu-9-cope-glucuronide Not Detected ng/mL 31 Noroxymorphone, Ur Not Detected ng/mL Cutoff: 25 32 Fentanyl, Ur Not Detected ng/mL Cutoff: 2 33 Norfentanyl, Ur Not Detected ng/mL Cutoff: 2 34 Meperidine, Ur Not Detected ng/mL Cutoff: 25 35 Normeperidine, Ur Not Detected ng/mL Cutoff: 25 36 Naloxone, Ur Not Detected ng/mL Cutoff: 25 37 Rrczhchy-4-ftdq-glucuronide, U Not Detected ng/mL 38 Methadone, Ur [...] Ur Not Detected ng/mL Cutoff: 50 46 Ivhatawhpn-qygi-kcgzuolonkw, U Not Detected ng/mL 47 Buprenorphine, Ur [...] [address]: Dimitris Madrigal MD Acct: [id number] Unit: [id number] AGE: 27 Location: [facility] Re12/28/17 SEX: F Status: DEP REF SPEC: [id number] STACEY: 12/28/[address] [facility] [address]: Dimitris Madrigal MD REQ: [id number] RECD: 12/28/17428 STATUS: COMP OTHR DR: Sheldon Banegas WOOD MECHANIST _ SOURCE: CER/VAG/RE SPDESC: ORDERED: Grp B Strp Scrn QUERIES: Is patient penicillin allergic and/or sensitivities needed? N Procedure Result Reported Site Group B Strep Culture Screen Final 12/30/17- 1115 ML Group B Strep Screen Negative * ML - Main Lab . END OF REPORT DEPARTMENT OF PATHOLOGY, [address] [place] [address] Everton Jaffe M.D. Director [facility] # [id number] Lead, Venous, B <1.0 mcg/dL 0.0-4.9 ADDITIONAL INFORMATION Testing performed by Inductively Coupled Plasma-Mass Spectrometry (ICP-MS). This test was developed and its performance characteristics determined by [facility] in a manner consistent with CLIA requirements. This test has not been cleared or approved by the U.S. Food and Drug Administration. 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 7 [id number] 8 Therapeutic target for the treatment of diabetes mellitus patients is <7% HBA1C, and in selective patients <6.0%. Please refer to [place] [employer] diabetic care guidelines for further information. 9 [id number] 10 Warning: A positive result is not useful for establishing a diagnosis of syphilis. In most situations, such a result may reflect a prior treated infection; a negative result can exclude a diagnosis of syphilis except for incubating or early primary disease. 11 Negative result: Negative for [id number]>G SNP and SMN1: 2 copies. 12 REFERENCE [...] 100 22 Metabolite of heroin 23 Lortab, [place], Vicodin; Also a very minor metabolite of [...] developed and its performance characteristics determined by [facility] in a manner consistent with CLIA requirements. This test has not been cleared or approved by the U.S. Food and Drug Administration. Test Performed by: [facility] [address] [place] [address] 52 SEE RESULT BELOW Name: ELZA MONTALVO : [address]: Nabeel Mchugh [facility] Acct: [id number] Unit: [id number] AGE: 26 Location: [facility] Re07/14/17 SEX: F Status: REG REF SPEC: [id number] STACEY: 07/14/17-[address] [facility] [address]: Nabeel Mchugh [facility] REQ: [id number] RECD: 07/14/17-1555 STATUS: SOUT _ ORDERED: TP IMAGE ANAL COMMENTS: [id number] Negative for Intraepithelial lesion or Malignancy A. Ectocervical/Endocervical Specimen Adequacy: Satisfactory of evaluation Transformation zone component identified Patient Information: HPV: Thin Layer Pap Test w/reflex to high risk HPV RNA testing when ASCUS Actual Specimen Date: 07/14/17 Last Menstrual Date: 04/25/17 Spec Date if unknown: unknown ?: Y Post Menopausal?: N Hysterectomy?: N Signed (signature on file) LA Agrawal(ASCP) 07/15 1200 This Pap test was evaluated with the assistance of the AscenergyPrep Test Imaging System. Due to cytologic findings at the photographer apprentice microscope, comprehensive manual rescreening by a Market Consultant may be required. The Pap Smear is [...] performed at Main Lab DEPARTMENT OF PATHOLOGY, [address] [place] [address] Everton Jaffe M.D. Director [facility] # [id number] 53 SEE RESULT BELOW Name: ELZA MONTALVO : [address]: Nabeel Mchugh CNM Acct: [id number] Unit: [id number] AGE: 26 Location: [facility] Re07/14/17 SEX: F Status: REG REF SPEC: [id number] STACEY: 07/14/17-[address]: Nabeel Mchugh CNM REQ: [id number] RECD: 07/14/17 STATUS: COMP _ SOURCE: URINE SPDESC: ORDERED: Urine Culture COMMENTS: [id number] Urine Source: Random Procedure Result Reported Site Urine Culture Final 07/16/17- 0855 ML No Growth (<1,000 CFU/mL) * ML - MAIN LAB (PSC1) . END OF REPORT * ML=Testing performed at Main Lab DEPARTMENT OF PATHOLOGY, [address] [place] [address] Everton Jaffe M.D. Director [facility] # [id number] Procedures Date CPT Code Description Status 01/31/2018 63865 Obstetric Care Routine Completed 01/27/2018 71715 Echography Uterus Limited Completed 01/27/2018 32241 Non-Stress Test Completed 01/20/2018 11209 Echography Uterus Limited Completed 12/28/2017 94053 Echography Uterus Limited Completed 12/28/2017 30834 Non-Stress Test Completed 12/18/2017 55837 Biophysical Profile Without Non Stress Test Completed 12/18/2017 31650 Echography Uterus Follow-Up Or Repeat Completed 09/14/2017 00387 Echography Uterus Complete Completed 07/14/2017 27825 OB Ultrasound First Trimester Completed Encounters Type Date Location Provider CPT E/M Dx Office Visit 01/27/2018 8:44a [place] [address] R03.0 Office Visit 12/28/2017 8:04a [place] [address] O47.03 Plan of Care Future Appointment(s):02/26/2018 10:20 am - Yaz Jenkins CNM at [facility]03/03/2018 3:30 pm - Cassidy Samuel MD at [facility]
[2018-03-08 08:41] VITALS: BP 127/79
[2018-03-08] MEDS ORDERED: Ibuprofen TAB* 600 MG PO ONE (09:17)
--- NOTE | 2018-03-08 09:19 | UC ---
Abdominal Pain Female HPI - HPI Summary HPI Summary: This patient is a 27 year old F presenting to [facility] with a chief complaint of L flank pain since a few days ago. She had thought she passed it because the pain went away, but then it woke her up from sleep at 0400 this morning and the pain was worse than before. The CC is described as constant but waxing and waning and radiating towards the mid lower back. Prior treatment includes Tylenol at 0400 this morning. The patient rates the pain 6/10 in severity. Symptoms aggravated by nothing. Symptoms alleviated by nothing. Patient denies fever, chills, rash, CP, and SOB. PMHx of kidney stones (4 years ago). Patient states this pain feels like a kidney stone. PSHx cholecystectomy. - History of Current Complaint Chief Complaint: UCGeneralIllness Stated Complaint: ABD PAIN Time Seen by Provider: 03/08/18 09:10 Hx Obtained From: Patient Hx Last Menstrual Period: 03/07/18 Onset/Duration: Sudden Onset, Lasting Days - a few days ago, Other - initially was resolved but came back this morning at 0400 Severity Initially: Moderate Severity Currently: Moderate Pain Intensity: 6 Pain Scale Used: 0-10 Numeric Location: Other - L flank Radiates: Yes Radiates to: Back - lower mid back Aggravating Factor(s): Nothing Alleviating Factor(s): Nothing Associated Signs and Symptoms: Positive: Other: - Patient denies fever, chills, rash, CP, and SOB. Allergies/Adverse Reactions: Allergies Allergy/AdvReac Type Severity Reaction Status Date / Time Penicillins Allergy Rash Verified 03/08/18 08:42 Home Medications: Home Medications Escitalopram (NF) [Lexapro 10 mg (NF)] 10 mg PO DAILY 03/08/18 [History Confirmed 03/08/18] Norethindrone [Deblitane] 1 tab PO DAILY 03/08/18 [History Confirmed 03/08/18] PMH/Surg Hx/FS Hx/Imm Hx GI/ History: Kidney Stones Psychological History: Anxiety, Depression Other History Of: Negative For: HIV, Hepatitis B, Anticoagulant Therapy - Surgical History Surgical History: Yes Surgery Procedure, Year, and Place: gallbladder. disc surgery. lithotripsy. uterine polyps - Family History Known Family History: Positive: Hypertension, Diabetes Negative: Cardiac Disease, Respiratory Disease, Seizure Disorder, Blood Disorder Family History: no cardio vascular issues in family lineage - Social History Alcohol Use: None Substance Use Type: None Smoking Status (MU): Former Smoker Amount Used/How Often: 2 cigs per week Review of Systems Constitutional: Other - denies fever, chills Skin: Other - denies rash Respiratory: Other - denies SOB Cardiovascular: Other - denies CP Gastrointestinal: Abdominal Pain - L flank pain All Other Systems Reviewed And Are Negative: Yes Physical Exam - Summary Physical Exam Summary: General: well-appearing, no pain distress Skin: warm, color reflects adequate perfusion, dry Head: normal Eyes: EOMI, ANNA ENT: normal Neck: supple, nontender Respiratory: CTA, breath sounds present Cardiovascular: RRR Abdomen: soft, Mild tenderness to percussion in the L flank. Bowel: present Musculoskeletal: normal, strength/ROM intact Neurological: sensory/motor intact, A&O x3 Psychological: affect/mood appropriate Triage Information Reviewed: Yes Vital Signs: Initial Vital Signs Temp 98 F 03/08/18 08:39 Pulse 82 03/08/18 08:39 Resp 17 03/08/18 08:39 BP 127/79 03/08/18 08:39 Pulse Ox 98 03/08/18 08:39 Vital Signs Reviewed: Yes Diagnostics - Radiology Abd/Pel CT Radiology Interpretation Completed By: Radiologist - Abd/Pel CT reveals 1. THERE IS A 4 X 6 MM CALCULUS PRESENT AT THE LEFT URETEROPELVIC JUNCTION CAUSING MILD HYDRONEPHROSIS. THERE IS AN ADDITIONAL SMALL PUNCTATE RIGHT RENAL CALCULUS. 2. URINARY BLADDER URACHAL ANOMALY. 3. STATUS POST CHOLECYSTECTOMY. 4. HEPATIC STEATOSIS. 5. MILD SPLENOMEGALY. [facility] physician has reviewed this radiology report. Re-Evaluation - Re-Evaluation First Eval Re-Evaluation Time: 10:14 Comment: Discussed CT results with the patient and plan for discharge. Patient understands and agrees with this plan. Abd Pain Female Course/Dx - Course Course Of Treatment: Medications reviewed. Allergies noted. DISCUSSED WITH UROLOGY OFFICE NURSING. F/U WITH UROLOGY TOMORROW. CONTACT THEM SOONER IF WORSE. DISCUSSED GOING TO THE ED IF SIGNS OF INFECTION OR WORSE. - Differential Dx/Diagnosis Provider Diagnoses: LEFT KIDNEY STONE - Physician Notification/Consults Time Discussed With Above Provider: 10:22 Instructed by Provider To: Other - Consulted [facility] nurse about the patient's case who took down the patient's info. The plan is for the patient to call their office tomorrow morning to get an appointment and to call the office today if she has any problems. Discharge - Sign-Out/Discharge Documenting (check all that apply): Patient Departure - discharge All imaging exams completed and their final reports reviewed: Yes - Discharge Plan Condition: Stable Disposition: HOME Prescriptions: oxyCODONE/Acetamin 5/325 MG* [Percocet 5/325 TAB*] 1 tab PO Q4H PRN #20 tab MDD 6 PRN Reason: Pain Patient Education Materials: Kidney Stones (ED), How to Strain Your Urine (ED) , Flank Pain (ED) Referrals: Cj Lazo MD [Medical Doctor] - Additional Instructions: FOLLOW UP WITH UROLOGY, DR LAZO, [phone]. CALL TOMORROW BETWEEN 8AM-8:30AM TO ARRANGE FOLLOW UP. YOU CAN CALL SOONER FOR ANY QUESTIONS OR CONCERNS; FEVER, PAIN, YOU FEEL ILL. GO TO THE EMERGENCY DEPARTMENT FOR ANY WORSENING OF YOUR CONDITION; PAIN, FEVER , YOU FEEL ILL OR QUESTIONS OR CONCERNS. - Billing Disposition and Condition Condition: STABLE Disposition: Home - Attestation Statements Document Initiated by Scribe: Yes Documenting Scribe: Wesley Villavicencio Provider For Whom Joss is Documenting (Include Credential): Kraig Saunders MD Scribe Attestation: Wesley Dobbs, scribed for Kraig Saunders MD on 03/08/18 at 1137. Scribe Documentation Reviewed: Yes Provider Attestation: The documentation as recorded by the Wesley pal accurately reflects the service I personally performed and the decisions made by me, Kraig Saunders MD
--- NOTE | 2018-03-08 10:08 | RAD ---
INDICATION: Left flank abdominal pain. COMPARISON: Comparison is made with a prior CT of the abdomen and pelvis from September 08, 2011. TECHNIQUE: A CT scan of the abdomen and pelvis was performed without intravenous and without oral contrast. Contiguous axial sections were obtained from the lung bases through the symphysis pubis. Images were reconstructed in the coronal and sagittal planes. FINDINGS: LUNGS: There is mild dependent bilateral lower lobe subsegmental atelectasis. No pleural effusion is present. LIVER: The liver is normal in size and decreased in attenuation consistent with fatty infiltration. No significant focal abnormality is seen on this noncontrast study. GALLBLADDER: The patient is status post cholecystectomy. BILE DUCTS: No intra or extrahepatic ductal distention is seen. SPLEEN: The spleen is mildly enlarged. PANCREAS: The pancreas is normal in size. No ductal distention or calcifications are seen. ADRENAL GLANDS: The adrenal glands are normal in size. KIDNEYS: The kidneys are normal in size. There is a punctate 1 mm nonobstructing calculus present in the upper pole of the right kidney. There is a 4 x 6 mm calculus present at the left ureteropelvic junction causing mild hydronephrosis and mild perinephric stranding. No bladder calculi are seen. AORTA: The aorta is normal in caliber without significant calcific plaque. LYMPH NODES: No significantly enlarged lymph nodes are seen. BOWEL: The stomach, small and large bowel appear nondistended. The appendix appears to be within normal limits. There are scattered diverticula within the colon. There is no evidence for diverticulitis or colitis. PELVIC ORGANS: There is a tract of fluid extending from the anterior aspect of the urinary bladder in the midline toward the umbilicus most consistent with a urachal anomaly. The uterus is anteverted in position and normal in size. PERITONEUM: No free intraperitoneal air or fluid is seen. BONES: No significant focal osseous abnormality is seen. IMPRESSION: 1. THERE IS A 4 X 6 MM CALCULUS PRESENT AT THE LEFT URETEROPELVIC JUNCTION CAUSING MILD HYDRONEPHROSIS. THERE IS AN ADDITIONAL SMALL PUNCTATE RIGHT RENAL CALCULUS. 2. URINARY BLADDER URACHAL ANOMALY. 3. STATUS POST CHOLECYSTECTOMY. 4. HEPATIC STEATOSIS. 5. MILD SPLENOMEGALY.
[2018-03-08 16:50] LABS: ABS Basophils 0.1 10^3/ul (0-0.2); ABS Eosinophils 0.1 10^3/ul (0-0.6); ABS Lymphocytes 2.4 10^3/ul (1.0-4.8); ABS Monocytes 0.6 10^3/ul (0-0.8); ABS Neutrophils 8.7 10^3/ul (1.5-7.7); ABS Nucleated RBC 0 10^3/ul; Hematocrit 38 % (35-47); Hemoglobin 12.5 g/dl (12.0-16.0); Mean Corpuscular HGB Conc 33 g/dl (31-36); Mean Corpuscular Hemoglobin 26 pg (27-31); Mean Corpuscular Volume 79 fL (80-97); Mean Platelet Volume 10.4 um3 (7.4-10.4); Nucleated Red Blood Cells % 0.1; Platelet Count 179 10^3/ul (150-450); Red Cell Distribution Width 14 % (10.5-15); White Blood Count 11.8 10^3/ul (3.5-10.8)
[2018-03-08 17:05] LABS: EGFR Non-African American 105.4 (>60)
== END 2018-03-08 10:36 | disposition home or self-care (01) ==
LOC: UCEAST 08:34
DX: N13.2 Hydronephrosis with renal and ureteral calculous obstruction (principal); Z87.442 Personal history of urinary calculi; K76.0 Fatty (change of) liver, not elsewhere classified; R16.1 Splenomegaly, not elsewhere classified; F41.9 Anxiety disorder, unspecified; F32.9 Major depressive disorder, single episode, unspecified; Z90.49 Acquired absence of other specified parts of digestive tract; Z88.0 Allergy status to penicillin; Z87.891 Personal history of nicotine dependence
CPT/HCPCS: 36415; 74176; 80053; 81003; 84702; 85025; 99212; A9270-GY; G0463

== ENCOUNTER 2018-03-12 09:48 | Day surgery (SDC) | payer OTHER ==
--- NOTE | 2018-03-11 18:55 | HP ---
HISTORY AND PHYSICAL: DATE OF PLANNED ADMISSION AND SURGERY: 03/12/18 HISTORY OF PRESENT ILLNESS: Ms. Zhu is a 27-year-old white female who is admitted with proximal left ureteral calculus for cystoscopy and placement of left ureteral stent. The patient presented to the urgent care center on 03/08/18 with symptoms of left renal colic. There was no associated fever or chills. She noted hematuria but no urinary symptoms. On her admission to the urgent care center, she was in pain, her vital signs were normal. Urinalysis showed microhematuria but no infection. Noncontrast CT of the abdomen and pelvis showed a punctate calculus in the right kidney and a 6-mm calculus at the left ureteropelvic junction associated with left hydronephrosis and stranding around the left kidney. The patient was managed with IV fluids and pain medications, was discharged home and was referred to our office for further management. The patient continued to have mild on and off episodes of left flank pain but was manageable with pain medications. The patient was evaluated in my office and had a renal ultrasound, which showed that the stone is still in the same position associated with mild left hydronephrosis. Because of the size of the stone, its location, and the associated pain, and in preparation for definitive treatment of the stone, the patient is admitted for placement of left ureteral stent. PAST MEDICAL HISTORY AND SYSTEM REVIEW: The patient had an episode of right renal colic 3 years ago while still in [place]. At that time, she was managed with the stent and with a lithotripsy. She otherwise denies any past history of renal diseases or calculi. She denies any voiding symptoms. The patient had a baby girl one month ago. 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 She is otherwise in good health. She has a history of anxiety and depression. PAST SURGICAL HISTORY: She had past history of gallbladder surgery, back surgery. MEDICATIONS: 1. vitamins. 2. Lexapro 10 mg daily. 3. Norethindrone 1 tablet daily. ALLERGIES: She reports being allergic to PENICILLIN, which gives her skin rash. FAMILY HISTORY: Relevant for hypertension and diabetes. SOCIAL HISTORY: The patient is a former smoker. PHYSICAL EXAMINATION GENERAL: Obese white female, who looks comfortable. VITAL SIGNS: Blood pressure 126/70, pulse of 76, temperature 96.5. LUNGS: Clear. HEART: Regular and rhythmic. No murmurs. ABDOMEN: Soft. No masses. No tenderness. Slight left CVA tenderness. LABORATORY DATA: Urinalysis in the office showed +3 blood, was negative otherwise. IMPRESSION: A 6-mm proximal left ureteral calculus with on and off episodes of left renal colics. PLAN: Plan is for cystoscopy and placement of left ureteral stent in preparation for definitive treatment of the stone. [id number] #: [id number] MTDD
[~2018-03-12 09:48] MED LIST: Buffered Lidocaine 0.9% SYRIN* 5 ML/SYR SYRINGE INTRADERM ONE
[2018-03-12] MEDS ORDERED: Levofloxacin 750 MG IVPREMIX(* 750 MG/150 ML BAG ONE (10:28)
[2018-03-12] MEDS ORDERED: Iohexol 180 (CONTRAST) 10 ML SDV IV ONE (11:48)
[2018-03-12] MEDS ORDERED: Midazolam* 1 MG/ML 2 ML VIAL (2 MG) ONE (11:55)
[2018-03-12] MEDS ORDERED: fentaNYL* 50 MCG/ML 2 ML VIAL (100 MCG VIAL) ONE (11:55)
[2018-03-12] MEDS ORDERED: Lidocaine 2% PF * 5 ML VIAL ONE (11:56)
[2018-03-12] MEDS ORDERED: Rocuronium* 10 MG/ML VIAL ONE (11:56)
[2018-03-12] MEDS ORDERED: Succinylcholine* 20 MG/ML 10 ML VIAL ONE (11:56)
[2018-03-12] MEDS ORDERED: Propofol* 10 MG/ML 20 ML BTL IV PUSH ONE ×2 (11:56)
[2018-03-12] MEDS ORDERED: Ondansetron INJ* 2 MG/ML VIAL ONE (12:27)
[2018-03-12] MEDS ORDERED: Dexamethasone IV* 4 MG/ML 1 ML (4 MG) ONE (12:27)
[2018-03-12] MEDS ORDERED: Ondansetron INJ* 2 MG/ML VIAL IV PRN (12:41)
[2018-03-12] MEDS ORDERED: Naloxone* 0.4 MG/ML 1 ML VIAL IV PRN (12:41)
[2018-03-12] MEDS ORDERED: Acetaminophen TAB* 325 MG PO PRN (12:41)
[2018-03-12] MEDS ORDERED: fentaNYL* 50 MCG/ML 2 ML VIAL (100 MCG VIAL) IV PRN (12:41)
[2018-03-12] MEDS ORDERED: oxyCODONE/Acetamin 5/325 MG* TAB ONE (13:37)
[2018-03-12 14:03] VITALS: BP 128/89
[2018-03-12 14:14] LABS: INR 0.9 (0.77-1.02)
--- NOTE | 2018-03-12 14:47 | RAD ---
INDICATION: Left ureteral stent placement. COMPARISON: Correlation is made with a prior CT of the abdomen and pelvis from March 08, 2018 and a prior retrograde pyelogram from March 12, 2018. TECHNIQUE: A single frontal supine film of the abdomen was obtained. FINDINGS: The small bowel and colon appear nondistended. There is a ureteral stent catheter present on the left side which appears unchanged in position from the prior retrograde pyelogram study. There is a calcification which projects over the lower pole of the left kidney measuring 4 mm in size. IMPRESSION: STATUS POST LEFT URETERAL STENT PLACEMENT.
--- NOTE | 2018-03-12 15:05 | RAD ---
CPT II Codes: G9500 INDICATION: Left ureteral stent placement. Left hydronephrosis. Fluoroscopic services provided for referring physician. 10 seconds of fluoroscopy time was used. 6 spot images of the left kidney demonstrates left hydronephrosis. This placement of a left ureteral stent. IMPRESSION: Fluoroscopic services provided for referring physician for left ureteral stent placement
--- NOTE | 2018-03-12 23:01 | OP ---
DATE OF OPERATION: 03/12/18 - [facility] DATE OF : [birth year] SURGEON: Cj Rao MD ANESTHESIOLOGIST: Christine Segundo DO ANESTHESIA: General. PRE-OP DIAGNOSIS: Left renal calculus (UPJ level). POST-OP DIAGNOSIS: Left renal calculus (UPJ level). OPERATIVE PROCEDURE: 1. Cystoscopy. 2. Left retrograde pyelography. 3. Placement of left ureteral stent (6-Norwegian). INDICATION FOR PROCEDURE: Ms. Zhu is a 27-year-old white female, who presented to the emergency room earlier this week with symptoms of left renal colic and was noted on noncontrast CT of the abdomen and pelvis to have a 7 mm calculus at the left ureteropelvic junction. She had been managed conservatively with pain medications. She has been having on and off episodes of left flank pain. \ Because of that finding, the patient is brought in for left ureteral stent placement in preparation for definitive treatment of the stone. PATHOLOGY: On Fluoroscopy, the left renal calculus could not be well visualized. Upon left retrograde pyelography, there was mild left hydronephrosis. DESCRIPTION OF PROCEDURE: After successful general anesthesia, the patient was placed in the lithotomy position and was prepped and draped for a cystoscopy. Cystoscopy was performed. The bladder was inspected and no abnormalities were noted. The ureteral orifices looked normal. A flexible tip guidewire was then introduced into the left orifice and positioned in the area of the renal pelvis. A size 5-Norwegian open-ended catheter was fed on top of the guidewire, a retrograde pyelography was performed. A size 6-Norwegian stent was then placed with the proximal end coiling in the collecting system and the distal end coiling inside the bladder. There was good drainage of contrast from the kidney and no extravasation. The patient tolerated the procedure well and left the operating room in good condition. The plan is to obtain a KUB before the patient's discharge. If the calculus is visualized on the KUB, the patient will be a candidate for shockwave lithotripsy and stent removal at a later date. [id number] #: [id number] MTDD
== END 2018-03-12 14:18 | disposition home or self-care (01) ==
LOC: OR 09:48
PROVIDERS: ATTEND Urology
DX: N13.2 Hydronephrosis with renal and ureteral calculous obstruction (principal); R31.29 Other microscopic hematuria; F41.8 Other specified anxiety disorders; E66.9 Obesity, unspecified; K58.9 Irritable bowel syndrome, unspecified
CPT/HCPCS: 36415; 74018; 74420; 81025; 85610; 85730; A9270-GY; C1876; J0330; J1100; J2250; J2405; J2704; J3010

== ENCOUNTER 2018-03-21 22:22 | Observation (INO) | payer OTHER ==
[2018-03-21] MEDS ORDERED: Ketorolac INJ* 30 MG/ML 1 ML VIAL IV ONE (23:12)
[2018-03-21] MEDS ORDERED: NS 0.9% 1000 ML* 1,000 ML IV ONE (23:12)
[2018-03-21] MEDS ORDERED: cefTRIAXone(*) 2 GM in NS 0.9% 100 ML* 100 ML IVPB ONE (23:34)
[2018-03-21] MEDS ORDERED: Levofloxacin 750 MG IVPREMIX(* 750 MG/150 ML BAG IVPB ONE (23:41)
--- NOTE | 2018-03-22 00:41 | ED ---
Back Pain - HPI Summary HPI Summary: Patient complains of bilateral flank pain, with fever up to 101, nausea, CP and SOB with pain spikes starting today. Bilateral flank pain described as constant , dull, /. History of left flank pain starting 03/08/18. Patient went to [facility] on 03/08, CT was ordered with positive left renal calculus 6 x 4 mm, and right punctate any stone. Patient had follow-up appointment with Dr. Rao on 03/10/18 who then placed a left-sided stent on 03/12 with post stent placement placement x-ray. Patient scheduled to have lithotripsy and stone removed 03/22/18, per presented for today for above symptoms. Denies abdominal pain, hematuria, vaginal symptoms, change in bowel movement, urine symptoms, cough, sore throat, V/D. Medical history is none. Abdominal surgical history is gallbladder, uterine polyps, 2 ureter stents. Patient on OCPs, LMP 03/08/18. Denies history of blood clots, . Nonsmoker. Urologist Dr. Rao. - History of Current Complaint Chief Complaint: EDFlankPain Stated Complaint: FLANK PAIN Time Seen by Provider: 03/21/18 23:08 Hx Obtained From: Patient Hx Last Menstrual Period: 03/07/18 Onset/Duration: Sudden Onset, Lasting Hours Onset/Duration: Started Hours Ago Timing: Constant Back Pain Location: Is Discrete @ Severity Initially: Moderate Severity Currently: Moderate Pain Intensity: 7 Pain Scale Used: 0-10 Numeric Character: Dull Aggravating Symptom(s): Movement Alleviating Symptom(s): Rest Associated Signs And Symptoms: Positive: Fever, Flank Pain - Allergies/Home Medications Allergies/Adverse Reactions: Allergies Allergy/AdvReac Type Severity Reaction Status Date / Time coconut oil Allergy Severe Rash Verified 03/21/18 22:30 Penicillins Allergy Intermediate Rash Verified 03/21/18 22:30 Home Medications: Home Medications Tamsulosin CAP* [Flomax CAP*] 0.4 mg PO BEDTIME 03/22/18 [History Confirmed 01/30] PMH/Surg Hx/FS Hx/Imm Hx Endocrine/Hematology History: Denies: Hx Anticoagulant Therapy Cardiovascular History: Denies: Hx Cardiac Arrest, Hx Myocardial Infarction GI History: Reports: Hx Irritable Bowel History: Reports: Hx Kidney Stones - 2014 Denies: Hx Dialysis Comment Only: Other Problems/Disorders - kidney stones removed 2014 Sensory History: Reports: Hx Contacts or Glasses - glasses Denies: Hx Hearing Aid Opthamlomology History: Reports: Hx Contacts or Glasses - glasses Psychiatric History: Reports: Hx Anxiety, Hx Depression - Cancer History Hx Chemotherapy: No - Surgical History Surgery Procedure, Year, and Place: gallbladder. disc surgery 2011. lithotripsy 2014. uterine polyps Hx Anesthesia Reactions: No - Immunization History Date of Influenza Vaccine: 02/2017 Infectious Disease History: No Infectious Disease History: Denies: Traveled Outside the [place] in Last 30 Days - Family History Known Family History: Positive: Hypertension, Diabetes Negative: Cardiac Disease, Respiratory Disease, Seizure Disorder, Blood Disorder Family History: no cardio vascular issues in family lineage - Social History Alcohol Use: None Substance Use Type: Reports: None Smoking Status (MU): Former Smoker Amount Used/How Often: 2 cigs per week Review of Systems Positive: Fever Eyes: Negative ENT: Negative Positive: Chest Pain Positive: Shortness Of Breath Positive: Nausea Positive: flank pain Musculoskeletal: Negative Skin: Negative Neurological: Negative Psychological: Normal All Other Systems Reviewed And Are Negative: Yes Physical Exam - Summary Physical Exam Summary: Minimal CVA tenderness right side, some CVA tenderness left side. Abdominal exam unremarkable. Triage Information Reviewed: Yes Vital Signs On Initial Exam: Initial Vitals Temp Pulse Resp BP Pulse Ox 100.1 F 108 16 143/73 97 03/21/18 22:25 03/21/18 22:25 03/21/18 22:25 03/21/18 22:25 03/21/18 22:25 Vital Signs Reviewed: Yes Appearance: Positive: Well-Appearing Skin: Positive: Warm Head/Face: Positive: Normal Head/Face Inspection Eyes: Positive: Normal Neck: Positive: Supple Respiratory/Lung Sounds: Positive: Clear to Auscultation Cardiovascular: Positive: Normal Abdomen Description: Positive: Nontender, CVA Tenderness (R), CVA Tenderness (L) Musculoskeletal: Positive: Normal Neurological: Positive: Normal Psychiatric: Positive: Normal AVPU Assessment: Alert - Alyssa Coma Scale Best Eye Response: 4 - Spontaneous Best Motor Response: 6 - Obeys Commands Best Verbal Response: 5 - Oriented Coma Scale Total: 15 Diagnostics - Vital Signs Vital Signs Temp Pulse Resp BP Pulse Ox 03/21/18 22:25 100.1 F 108 16 143/73 97 - Laboratory Result Diagrams: 10/08/18 00:34 03/22/18 00:34 Lab Statement: Any lab studies that have been ordered have been reviewed, and results considered in the medical decision making process. - Radiology kub Xray Interpretation: No Acute Changes - Stent in place. No stone noted. Radiology Interpretation Completed By: ED Physician - Ultrasound No standard instances Ultrasound Interpretation: No Acute Changes Ultrasound Interpretation Completed By: Radiologist - EKG 1 Cardiac Rate: NL EKG Rhythm: Sinus Rhythm ST Segment: Normal Ectopy: None Back Pain Course/Dx - Course Course Of Treatment: Patient complains of bilateral flank pain, with fever up to 101, nausea, CP and SOB with pain spikes starting today. Bilateral flank pain described as constant, dull, 12/22. History of left flank pain starting 03/08. Patient went to [facility] on 03/08, CT was ordered with positive left renal calculus 6 x 4 mm, and right punctate any stone. Patient had follow- up appointment with Dr. Rao on 03/10/18 who then placed a left-sided stent on 03/12 with post stent placement placement x-ray. Patient scheduled to have lithotripsy and stone removed 03/22/18, per presented for today for above symptoms. Denies abdominal pain, hematuria, vaginal symptoms, change in bowel movement, urine symptoms, cough, sore throat, V/D. Medical history is none. Abdominal surgical history is gallbladder, uterine polyps, 2 ureter stents. Patient on OCPs, LMP 03/08/18. Denies history of blood clots, . Nonsmoker. Urologist Dr. Rao. Physical exam:Minimal CVA tenderness right side, some CVA tenderness left side. Abdominal exam unremarkable. Temperature 100.1, mildly tachycardic at 108. Vital signs otherwise unremarkable. WC 11.1. CRP 50. Discussed patient with Dr. Rao urologist for patient who recommended Levaquin 750 milligrams, KUB and admission to hospitalist with neurology follow-up tomorrow. Patient will be admitted - Diagnoses Provider Diagnoses: Bilateral flank pain Discharge - Sign-Out/Discharge Documenting (check all that apply): Patient Departure - Discharge Plan Condition: Stable Disposition: ADMITTED TO [facility] Referrals: No Primary Care Phys,NOPCP [Primary Care Provider] - - Billing Disposition and Condition Condition: STABLE Disposition: Admitted to [facility]
[2018-03-22 00:51] LABS: ABS Basophils 0 10^3/ul (0-0.2); ABS Eosinophils 0 10^3/ul (0-0.6); ABS Lymphocytes 0.6 10^3/ul (1.0-4.8); ABS Monocytes 0.8 10^3/ul (0-0.8); ABS Neutrophils 9.6 10^3/ul (1.5-7.7); ABS Nucleated RBC 0 10^3/ul; Eosinophil % 0.2 % (0-6); Hematocrit 34 % (35-47); Hemoglobin 11.2 g/dl (12.0-16.0); Lymphocyte % 5.7 % (25-47); Mean Corpuscular HGB Conc 33 g/dl (31-36); Mean Corpuscular Hemoglobin 26 pg (27-31); Mean Corpuscular Volume 79 fL (80-97); Mean Platelet Volume 9.4 um3 (7.4-10.4); Nucleated Red Blood Cells % 0.3; Platelet Count 146 10^3/ul (150-450); Red Blood Count 4.31 10^6/ul (4.00-5.40); Red Cell Distribution Width 15 % (10.5-15); White Blood Count 11.1 10^3/ul (3.5-10.8)
--- NOTE | 2018-03-22 01:12 | RAD ---
EXAM: US Retroperitoneal Complete, Renal EXAM DATE/TIME: Exam ordered 03/22/2018 12:19 AM CLINICAL HISTORY: 27 years old, female; Pain; Abdominal pain; Flank; Left; Additional info: Bilat flank pain, has left stent due to stone, scheduled for lithotripsy on 03/22/18. TECHNIQUE: Real-time ultrasound of the retroperitoneum (complete) with image documentation. COMPARISON: OT KUB ABDOMEN/KUB 1 VW 03/12/2018 1:59 PM FINDINGS: Right kidney: The right kidney measures 11.3 cm in its cephalocaudad dimension and 5.2 x 6.5 cm in diameter. No mass, cyst or hydronephrosis. No definite stones although some non-shadowing echogenic foci are noted. Left kidney: The left kidney measures 11.7 cm in its cephalocaudad dimension and 4.4 x 5.9 cm in diameter. No mass, cyst or hydronephrosis. There is a double-J stent in the upper pole. Bladder: A right ureteral jet is seen. Tubes, lines and devices: A left double-J ureteral stent is noted in the bladder. IMPRESSION: 1. Left double-J ureteral stent in position. 2. Otherwise negative renal sonogram. No hydronephrosis. A right ureteral jet is noted. To contact [facility] with a general question: Operations Center - [phone] For direct physician to physician contact: Physician Hotline - [phone] [facility] ([facility] Facility ID #[id number])
[2018-03-22] MEDS ORDERED: oxyCODONE/Acetamin 5/325 MG* TAB ONE (02:22)
[2018-03-22] MEDS: oxyCODONE/Acetamin 5/325 MG* TAB PO PRN ×5 (02:24→21:26)
[2018-03-22 02:41] LABS: INR 1.01 (0.77-1.02)
[2018-03-22 02:53] LABS: EGFR Non-African American 115.1 (>60)
[2018-03-22 02:59] LABS: Urine Appearance Clear; Urine Blood 2+ (Negative); Urine Color Yellow; Urine Ketones Negative (Negative); Urine Protein 1+(30 mg/dL) (Negative); Urine Red Blood Cell 3+(>10/hpf) (Absent); Urine Specific Gravity 1.023 (1.010-1.030); Urine Urobilinogen Negative (Negative); Urine White Blood Cell Trace(0-5/hpf) (Absent)
[2018-03-22] MEDS ORDERED: Levofloxacin TAB* 250 MG PO SCH (03:00)
[2018-03-22] MEDS ORDERED: Acetaminophen TAB* 325 MG PO PRN (03:52)
[2018-03-22] MEDS ORDERED: Ibuprofen TAB* 600 MG ONE (03:54)
[2018-03-22] MEDS: Ibuprofen TAB* 600 MG PO PRN ×4 (03:56→23:01)
[2018-03-22] MEDS: NS 0.9% 1000 ML* 1,000 ML IV SCH ×3 (04:34→23:04)
[2018-03-22 05:36] LABS: ABS Basophils 0 10^3/ul (0-0.2); ABS Eosinophils 0 10^3/ul (0-0.6); ABS Lymphocytes 0.8 10^3/ul (1.0-4.8); ABS Neutrophils 8.8 10^3/ul (1.5-7.7); ABS Nucleated RBC 0 10^3/ul; Eosinophil % 0.1 % (0-6); Hematocrit 30 % (35-47); Hemoglobin 9.9 g/dl (12.0-16.0); Lymphocyte % 7.7 % (25-47); Mean Corpuscular HGB Conc 33 g/dl (31-36); Mean Corpuscular Hemoglobin 26 pg (27-31); Mean Corpuscular Volume 80 fL (80-97); Mean Platelet Volume 9.2 um3 (7.4-10.4); Nucleated Red Blood Cells % 0; Platelet Count 127 10^3/ul (150-450); Red Blood Count 3.78 10^6/ul (4.00-5.40); Red Cell Distribution Width 15 % (10.5-15); White Blood Count 10.7 10^3/ul (3.5-10.8)
--- NOTE | 2018-03-22 06:02 | ADMNOTE ---
Subjective Date of Service: 03/22/18 Interval History: hpi 27 yr old morbid obese female with hx of recurrent left renal stones with need of renal stent in 2014 and 02/2018 presented to er with c/o b/l flank pain fever to close to 102 with some dizzy/ nausea ---> pt was going to have renal stent pulled out by fernando in am oringially prior to her visit to er---> had a stone removed 4* 6 cm./ stent to be out today er spoke with fernando who will see pt in am ---> levaquin placed. kub did not eval stent dislodge and sono did not reveal hydro pt has been getting percocet outpt but only got four days supply from [facility]. 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 Past Medical History: Findings - phx morbid obsity depression chronic lbp s/p two disc surgery s/p chol s/p uterine polyps removal hx of two times of renal stent placement with recent stone removal ( 2014 seond 03/02) Review of Systems - Measurements Intake and Output: Intake and Output Last 24 Hours 03/19/18 03/20/18 03/21/18 03/22/18 06:59 06:59 06:59 06:59 Weight 274 lb - Review of Systems General Comments: 05/26 ros reviewed with pt please refer to hpi as per hpi Objective Active Medications: Acetaminophen (Tylenol Tab*) 650 mg PO Q4H PRN PRN Reason: FEVER/PAIN Citalopram Hydrobromide (Celexa Tab*) 20 mg PO QPM JADEN Sodium Chloride (Ns 0.9% 1000 Ml*) 1,000 mls @ 125 mls/hr IV PER RATE JADEN Last Admin: 03/22/18 04:34 Dose: 125 mls/hr Ibuprofen (Motrin Tab*) 600 mg PO Q6H PRN PRN Reason: Pain/fever Last Admin: 03/22/18 03:56 Dose: 600 mg Levofloxacin (Levaquin Tab*) 750 mg PO Q24H JADEN Norethindrone (Jenni (Nf)) 0.35 mg PO QPM [facility] Oxycodone/Acetaminophen (Percocet 5/325 Tab*) 1 tab PO Q4H PRN PRN Reason: PAIN Last Admin: 03/22/18 02:24 Dose: 1 tab Tamsulosin HCl (Flomax Cap*) 0.4 mg PO BEDTIME [facility] Vital Signs - 8 hr 03/21/18 03/22/18 03/22/18 22:25 02:20 02:24 Temperature 100.1 F Pulse Rate 108 78 Respiratory 16 18 18 Rate Blood Pressure 143/73 148/87 (mmHg) O2 Sat by Pulse 97 100 Oximetry 03/22/18 03/22/18 03/22/18 03:30 03:42 04:40 Temperature 101.0 F 99.1 F Pulse Rate 78 107 Respiratory 18 16 16 Rate Blood Pressure 129/78 140/64 (mmHg) O2 Sat by Pulse 100 98 Oximetry Oxygen Devices in Use Now: None Eyes: No Scleral Icterus, PERRLA Ears/Nose/Mouth/Throat: NL Teeth, Lips, Gums, Clear Oropharnyx, Mucous Membranes Moist Neck: NL Appearance and Movements; NL JVP, Trachea Midline, No Thyroid Enlargement, Masses Respiratory: Symmetrical Chest Expansion and Respiratory Effort, Clear to Auscultation Cardiovascular: NL Sounds; No Murmurs; No JVD, RRR Abdominal: NL Sounds; No Tenderness; No Distention, - - b/l flank tenderness Extremities: No Edema - able to raise ue and le against gravity Skin: No Rash or Ulcers Result Diagrams: 03/22/18 05:19 03/22/18 02:18 Assess/Plan/Problems-Billing Assessment: 27 yr wf with hx of recent left renal stent placed and large stone removal presented with fever b/l flank pain initial wbc is 11.2 - Patient Problems (1) Flank pain Current Visit: Yes Status: Acute Code(s): R10.9 - UNSPECIFIED ABDOMINAL PAIN SNOMED Code(s): 792453058 Comment: - fernando daniel called in from er - levaquin - ivf - percocet - she is currently npo (2) SIRS (systemic inflammatory response syndrome) Current Visit: Yes Status: Acute Code(s): R65.10 - SIRS OF NON-INFECTIOUS ORIGIN W/O ACUTE ORGAN DYSFUNCTION SNOMED Code(s): 507722523 Comment: abx moniter cbc trend gu eval (3) Depression Current Visit: Yes Status: Acute Code(s): F32.9 - MAJOR DEPRESSIVE DISORDER , SINGLE EPISODE, UNSPECIFIED SNOMED Code(s): 23497107 Comment: never suicidal prior continue her psy med with sip of water (4) Recurrent kidney stones Current Visit: Yes Status: Acute Code(s): N20.0 - CALCULUS OF KIDNEY SNOMED Code(s): 48709760 Comment: ? the need to do 24 collection of urine study ---> will leave to fernando
--- NOTE | 2018-03-22 08:07 | RAD ---
Indication: Bilateral flank pain. Flat plate of the abdomen demonstrates left ureteral stent in place. Calcifications overlying the lower pole of the left kidney is noted. Overall configuration of the stent is unchanged from March 12, 2018. Calcification is also unchanged. IMPRESSION: Left ureteral stent in overall position unchanged from March 12, 2018.
--- NOTE | 2018-03-22 13:12 | CONS ---
CONSULTATION NOTE: DATE OF CONSULT: 03/22/18 LOCATION: The patient is on the third floor. HISTORY OF PRESENT ILLNESS: Mrs. Zhu is a 27-year-old white female, who presented on 03/08/18 with symptoms of left renal colic. There was no associated fever or chills. Urinalysis shows microscopic hematuria, but no infection. She had a noncontrast CT of the abdomen and pelvis, which showed a punctate calculus in the right kidney and a 6 mm calculus at the left ureteropelvic junction associated with left hydronephrosis and stranding around the left kidney. Because of persistent flank pain, she was admitted on and had a cystoscopy and placement of left ureteral stent. She was then followed in the office and had a KUB, which showed the left stent in good position and the calculus to have migrated into the lower pole calyx of the left kidney. Her urinalysis in the office showed microscopic hematuria, but no pyuria. The patient was scheduled for admission on 03/22/18 for shock-wave lithotripsy of the left renal calculus and cystoscopy with left stent removal. On the ryan of her scheduled admission, she presented to the ER because of fever and some chills, associated with frequency and urgency, burning on urination and had bilateral flank discomfort more so on the left side. In the emergency room, her temperature was up to 101. Her blood pressure and respirations were normal. Her heart rate was about 100. Her white count was 11,000 with 87% neutrophils. C-reactive protein was elevated at 50. Her serum creatinine was normal at 0.7. Her urinalysis was positive for blood, negative otherwise. She had a KUB, which showed the stent in good position and the 6 mm calculus still in the lower pole calyx of the left kidney. Renal and full bladder ultrasound showed no hydronephrosis and good jets from the right side. Urine cultures and blood cultures were obtained and the patient was admitted for IV fluids and started on Levaquin. I saw her this morning and she was feeling better. Her temperature was down and the pain had improved. She continues to have left flank discomfort. Blood cultures and urine cultures have been negative so far. PLAN: 1. Cancel the planned shock-wave lithotripsy for today. 2. Await the result of the urine culture and send her home on oral antibiotics. 3. She will be seen in the office afterwards and she will be rescheduled for shock- wave lithotripsy and stent removal in two weeks. [id number]/[facility] #: [id number] NAVJOT
[2018-03-22] MEDS ORDERED: Citalopram TAB* 20 MG PO SCH (18:00)
[2018-03-22] MEDS ORDERED: Tamsulosin CAP* 0.4 MG PO SCH (21:00)
[2018-03-22] MEDS ORDERED: PTO:Norethindrone (NF) 0.35 MG TAB PO SCH (21:00)
[2018-03-22] MEDS ORDERED: Levofloxacin TAB* 750 MG PO SCH (22:00)
[2018-03-23] MEDS: oxyCODONE/Acetamin 5/325 MG* TAB PO PRN ×3 (01:28→11:36)
[2018-03-23] MEDS: Ibuprofen TAB* 600 MG PO PRN ×2 (06:17→12:57)
[2018-03-23] MEDS: NS 0.9% 1000 ML* 1,000 ML IV SCH (07:18)
[2018-03-23 11:15] VITALS: BP 143/87
--- NOTE | 2018-03-24 06:56 | DS ---
CC: Dr. Annabelle Altman; Dr. Cj Rao * DISCHARGE SUMMARY: DATE OF ADMISSION: 03/22/18 DATE OF DISCHARGE: 03/23/18 PRIMARY CARE PROVIDER: Dr. Annabelle Altman UROLOGIST: Dr. Cj Rao ATTENDING PHYSICIAN: Janki Ledbetter DO * (dictated by Sheridan Thornton NP) PRIMARY DIAGNOSES: 1. Flank pain. 2. Systemic inflammatory response syndrome. 3. Recurrent kidney stones. SECONDARY DIAGNOSES: 1. Depression. 2. Obesity. STUDIES WHILE IN THE HOSPITAL: 1. Abdomen, bladder ultrasound on 03/21/18, reads as left double J ureteral stent in position, otherwise, negative renal sonogram. No hydronephrosis. A right ureteral jet is noted. 2. Abdomen, x-ray on 03/21/18, reads as left ureteral stent and overall position unchanged from 03/12/18. CONSULTATIONS WHILE IN THE HOSPITAL: Dr. Rao saw the patient in consultation on 03/22/18. He has been following this patient since February when she had symptoms of left renal colic and he performed the cystoscopy and a left ureteral stent placement on 03/12/18. At this point, Dr. Rao is cancelling the planned shock wave lithotripsy for today. He recommends awaiting the results of the urine culture and sending the patient home on oral antibiotics. He will see the patient in the office as an outpatient and she will be rescheduled for shock wave lithotripsy and stent removal in 2 weeks. DISCHARGE MEDICATIONS: New medications: 1. Bactrim DS 800/160 one tab p.o. b.i.d. x10 days. 2. Oxycodone/acetaminophen 5/325 mg 1 tab p.o. q.4 hours p.r.n. 3. Ibuprofen 600 mg p.o. q.6 hours p.r.n. Continued home medications: 1. Citalopram 10 mg p.o. daily. 2. Norethindrone 0.35 mg daily. 3. Tamsulosin 0.4 mg p.o. daily. HISTORY OF PRESENT ILLNESS AND HOSPITAL COURSE: Ms. Zhu is a 27-year-old female with a past medical history of recurrent kidney stones, multiple ureteral stent placements, depression, and obesity, who presented to the emergency room on 03/22/18 with complaints of fever up to 102, bilateral flank pain, dizziness and nausea. Please see the history and physical by Dr. Charlton for a complete summary of the events leading up to this hospitalization, but in short, the patient was scheduled to have her left ureteral stent removed by Dr. Rao on 03/23/18, although, she began experiencing the symptoms noted above while at home. She reported constant dull pain with intermittent sharp pain for which she was taking Percocet with good effect. While in the emergency room , she was given Toradol and ceftriaxone along with IV fluids. Dr. Rao was consulted on admission, during which time, he recommended starting the patient on levofloxacin which she received on 03/22/18. The patient had relatively uneventful night. No further fevers. White count is normal. Normal kidney function. Urinalysis shows 1+ protein, 2+ blood, and 3+ RBCs. Blood cultures are negative. Urine culture showed no significant growth. As of this morning, the patient reports feeling better and is anxious to return home as she has a . She denies any urinary symptoms including dysuria or oliguria. She denies any blood in her urine and has had good urinary output. Still having mild flank pain. I spoke with Dr. Rao regarding plans for discharge as her urine culture had no growth. He recommended sending the patient home on Bactrim DS for 10 days. He also recommended continuing the tamsulosin and stated that his office would contact the patient for followup lithotripsy. Ms. Zhu is stable for discharge home today. Vital signs are as follows: Temp 97.6, heart rate 71, respiratory rate 16, oxygen saturation 100% on room air, blood pressure 143/87. DISCHARGE PLAN: Ms. Zhu will be discharged home. Activity will be as tolerated. Diet is regular as tolerated. Medications are noted above. The patient will be given a 10-day course of Bactrim DS, along with a 3-day supply of Percocet for pain management. She has also been instructed to use ibuprofen for pain management. The patient will be following up with a new primary care provider on 04/07/18. She will be following up with Dr. Rao's office. They will contact her for an appointment. She has been instructed to return to the emergency room or nearest hospital for any worsening of symptoms, shortness of breath, lightheadedness, dizziness, chest discomfort, high fevers, chills, night sweats, loss of consciousness, or any other worrisome signs or symptoms. She is in understanding of all plans for discharge. This is a summarized report of a complex medical history and hospital stay. For further details, please see the entire medical record. TIME SPENT: Approximately 45 minutes were spent on this discharge. Greater than half of that time was spent [id number] with the patient discussing discharge plans and instructions. SHERIDAN THORNTON, EXPLORATION DRILLER [id number]/[facility] #: [id number] NAVJOT
== END 2018-03-23 14:00 | disposition home or self-care (01) ==
LOC: ED 22:22 → INTOOBSV 03-22 03:40 → SSU 03-22 03:40
PROVIDERS: ADMIT Internal Medicine; ATTEND Internal Medicine
DX: R10.84 Generalized abdominal pain (principal); R65.10 Systemic inflammatory response syndrome (SIRS) of non-infectious origin without acute organ dysfunction; N20.0 Calculus of kidney; F32.9 Major depressive disorder, single episode, unspecified; E66.9 Obesity, unspecified; R50.9 Fever, unspecified; R07.9 Chest pain, unspecified; R06.02 Shortness of breath; Z87.891 Personal history of nicotine dependence
CPT/HCPCS: 36415; 74018; 76770; 80053; 81003; 81015; 83605; 83690; 84702; 85025; 85610; 86140; 87040; 87086; 96361; 96365; 96366; 96375; 99284; A9270-GY; G0378; J1885

== ENCOUNTER 2018-04-05 09:45 | Day surgery (SDC) | payer OTHER ==
--- NOTE | 2018-03-30 22:48 | HP ---
INTERVAL HISTORY AND PHYSICAL: DATE OF PLANNED ADMISSION AND SURGERY: 04/05/18 HISTORY OF PRESENT ILLNESS: Ms. Zhu is a 27-year-old white female who is admitted with a left renal calculus, status post placement of left ureteral stent for shock wave lithotripsy of left renal calculus followed by cystoscopy and removal of the left ureteral stent. Ms. Zhu presented on 03/12/18 with an obstructing proximal left ureteral calculus. She had urgent placement of left ureteral stent. Postoperative KUB showed stone to have migrated into the lower pole calyx. She was scheduled to undergo shock wave lithotripsy of the left renal calculus with stent removal on 03/22/18. On the ryan of her scheduled admission, she presented to the emergency room with increasing left flank pain, fever, and chills. Her urinalysis was positive for infection. Renal ultrasound showed no hydronephrosis and stent in good position. The KUB showed no changes in the position of the left stent or the left renal calculus. The patient was admitted to the hospital and started on IV antibiotics. Her urine and blood cultures were both negative. She was nonetheless treated with antibiotics and was discharged to home on Bactrim. She was then evaluated in the office. She is still complaining of left flank and back pain and not feeling good. Urine culture was repeated and it was negative. The patient is now admitted for shock wave lithotripsy of the left renal calculus followed by cystoscopy and removal of the left ureteral stent. There have not been any other changes in her general medical conditions. Dr. Jung will be performing her surgery as I will be out of town. [id number]/[facility] #: [id number] [facility] HOSPITALMellisa
[~2018-04-05 09:45] MED LIST changes: -Buffered Lidocaine 0.9% SYRIN* 5 ML/SYR SYRINGE INTRADERM ONE; +Sodium Citrate/Citric Acid* 15 ML UDC PO ONE
--- NOTE | 2018-04-05 10:28 | RAD ---
Indication: Renal calculi. Single view of the abdomen demonstrates left ureteral stent in place. Calcification overlying the lower pole of the left kidney. IMPRESSION: Calcification overlying the lower pole of left kidney. Left ureteral stent is present.
[2018-04-05] MEDS ORDERED: Sodium Citrate/Citric Acid* 15 ML UDC ONE (10:33)
[2018-04-05] MEDS ORDERED: Buffered Lidocaine 0.9% SYRIN* 5 ML/SYR SYRINGE ONE (10:34)
[2018-04-05] MEDS ORDERED: Levofloxacin 500 MG IVPREMIX(* 500 MG/100 ML BAG IVPB ONE (10:34)
[2018-04-05] MEDS ORDERED: Propofol* 10 MG/ML 20 ML BTL IV PUSH ONE (12:53)
[2018-04-05] MEDS ORDERED: Lidocaine 2% PF * 5 ML VIAL ONE (12:53)
[2018-04-05] MEDS ORDERED: Furosemide IV* 10 MG/ML 2 ML VIAL (20 MG) ONE (13:53)
[2018-04-05] MEDS ORDERED: Gentamicin ADULT (*) 160 MG in NS 0.9% 100 ML* 100 ML IVPB ONE (14:00)
[2018-04-05] MEDS ORDERED: Naloxone* 0.4 MG/ML 1 ML VIAL IV PRN (14:04)
[2018-04-05 14:18] VITALS: BP 108/65
--- NOTE | 2018-04-05 15:28 | RAD ---
HISTORY: RENAL CALCULI COMPARISONS: March 06, 2018 at 9:39 AM VIEWS: Frontal views of the abdomen. FINDINGS: BOWEL: There is a nonspecific bowel gas pattern, with nondilated small bowel gas noted. CALCULI: The left renal calculi noted on the previous examination is not clearly visualized on the current examination. There has been interval removal of a left ureteral stent. BONES AND SOFT TISSUES: Degenerative changes are noted at L4-L5 OTHER FINDINGS: The lung bases are clear. There is no subphrenic gas. IMPRESSION: INTERVAL REMOVAL OF LEFT URETERAL STENT.
--- NOTE | 2018-04-06 06:37 | OP ---
DATE OF OPERATION: 04/05/18 - [facility] DATE OF : 89. SURGEON: Bryan Jung MD. ANESTHESIOLOGIST: Dr. Clemens. ANESTHESIA: General. PRE-OP DIAGNOSIS: Left renal calculus. POST-OP DIAGNOSIS: Left renal calculus. OPERATIVE PROCEDURE: 1. Shock wave lithotripsy of left renal calculus. 2. Cystoscopy and left stent removal. COMPLICATIONS: None. POSTOPERATIVE CONDITION: Stable. INDICATIONS: Elza Zhu is a 27-year-old lady who had undergone urgent stent insertion for an obstructing calculus in the left proximal ureter. The stone was pushed back and is now in the lower pole of the left kidney and she is now being brought in for treatment of the same. DESCRIPTION OF PROCEDURE: After induction of general anesthesia, the patient was placed on the lithotripsy table in supine position. The calculus in the lower pole was identified using fluoroscopy. Shock wave lithotripsy was commenced at a rate of 60 shocks per minute. After the initial 300 shocks there was an pause in the lithotripsy for several minutes in an effort to minimize any potential trauma to the kidney. Lithotripsy was then resumed and periodic imaging revealed good localization and fragmentation. A total of 1800 shocks were administered. Next, the patient was placed in dorsal lithotomy position and cystoscopy was performed. The stent was seen exiting from the left orifice and was removed intact without difficulty. The patient tolerated the procedure satisfactorily and was transferred back to the recovery area in stable condition. [id number] #: [id number] MTDD
== END 2018-04-05 14:45 | disposition home or self-care (01) ==
LOC: OR 09:45
PROVIDERS: ATTEND Urology
DX: N20.0 Calculus of kidney (principal)
CPT/HCPCS: 74018; 81025; A9270-GY; J1580; J1940; J1956; J2704

== ENCOUNTER 2018-12-10 10:36 | Emergency (ER) | payer OTHER ==
[2018-12-10 10:51] VITALS: BP 140/84
--- NOTE | 2018-12-10 11:04 | UC ---
Back Pain HPI - HPI Summary HPI Summary: 27 yo female presents with LEFT sided SI pain radiating into her left leg. She tells me that she has a history of herniated discs in her lower back. She has had 2 back surgeries, one in ~2010 and one in ~2013 for this issue. She has occasional lower back pain, but has overall been doing well. She tells me that yesterday she was doing a lot of house work and was cleaning - noticed some increased lower back pain. This morning she woke up and had pain in her left buttocks/hip that radiates behind her left thigh and calf down to her ankle - has "burning" in her posterior thigh and calf with this. She endorses some decreased sensation on the lateral aspect of her left foot and lower calf. She has not taken anything OTC for her discomfort. Denies specific injury, saddle anesthesia, loss of bowel/bladder control, dysuria. She does not see a local neurosurgeon for follow up care. - History of Current Complaint Chief Complaint: UCLowerExtremity Stated Complaint: LEG PAIN Time Seen by Provider: 12/10/18 11:04 Hx Obtained From: Patient Hx Last Menstrual Period: 12/02/18 Onset/Duration: Sudden Onset Severity Initially: Severe Severity Currently: Severe Pain Intensity: 7 Pain Scale Used: 0-10 Numeric - Allergies/Home Medications Allergies/Adverse Reactions: Allergies Allergy/AdvReac Type Severity Reaction Status Date / Time coconut oil Allergy Severe Rash Verified 05/09/18 15:23 Penicillins Allergy Intermediate Rash Verified 05/09/18 15:23 Home Medications: Home Medications Amitriptyline TAB* [Elavil TAB*] 1 tab PO BID 12/10/18 [History Confirmed ] Venlafaxine ER (NF) [Effexor ER (NF)] 1 tab PO DAILY 12/10/18 [History Confirmed 12/10/18] PMH/Surg Hx/FS Hx/Imm Hx - Additional Past Medical History Additional PMH: Kidney stones Depression Low back pain with surgeries Other History Of: Negative For: HIV, Hepatitis B, Anticoagulant Therapy - Surgical History Surgical History: Yes Surgery Procedure, Year, and Place: gallbladder - 2009. disc surgery 2011. lithotripsy 2014. uterine polyps removed - 2012 - Family History Known Family History: Positive: Hypertension, Diabetes Negative: Cardiac Disease, Respiratory Disease, Seizure Disorder, Blood Disorder Family History: no cardio vascular issues in family lineage - Social History Alcohol Use: None Substance Use Type: None Smoking Status (MU): Former Smoker Amount Used/How Often: 2 cigs per week - Immunization History Most Recent Influenza Vaccination: 2017 Most Recent Pneumonia Vaccination: never Review of Systems All Other Systems Reviewed And Are Negative: Yes Constitutional: Positive: Negative Skin: Positive: Negative Respiratory: Positive: Negative Cardiovascular: Positive: Negative Gastrointestinal: Positive: Negative Genitourinary: Positive: Negative Neurovascular: Positive: Negative Musculoskeletal: Positive: Other: - Low back pain Neurological: Positive: Numbness - left foot Psychological: Positive: Negative Physical Exam - Summary Physical Exam Summary: GENERAL: NAD. WDWN. No pain distress. SKIN: No rashes, sores, lesions, or open wounds. NECK: Supple. FROM. Nontender. No lymphadenopathy. CHEST: CTAB. No r/r/w. No accessory muscle use. Breathing comfortably and in no distress. CV: RRR. Without m/r/g. Pulses intact. Cap refill <2seconds MSK: Mild TTP over LEFT lumbar paraspinal muscles. Moderate TTP at LEFT SI. Positive SLR on left for low back pain with radiation into posterior thigh/ knee. Strength 5/5 B/L LEs including dorsiflexion and plantar flexion. FROM B/ L LEs. No edema. NEURO: Alert. Sensations intact B/L LEs L3-S1, but with decreased sensation on lateral aspect of left foot and left calf along S1 dermatome. Reflexes intact PSYCH: Age appropriate behavior. Triage Information Reviewed: Yes Vital Signs: Initial Vital Signs Temp 98 F 12/10/18 10:47 Pulse 86 12/10/18 10:47 Resp 18 12/10/18 10:47 BP 140/84 12/10/18 10:47 Pulse Ox 99 12/10/18 10:47 Vital Signs Reviewed: Yes Back Pain Course/Dx - Course Course Of Treatment: XR lumbar spine: IMPRESSION: MODERATE TO SEVERE DEGENERATIVE DISC DISEASE AT THE L3-L4, L4-L5 AND L5-S1 LEVELS. XR hip: IMPRESSION: MILD BILATERAL OSTEOARTHRITIC CHANGE IN THE HIPS. She was given Toradol IM in the clinic with slight improvement of her pain. I suspect she is experiencing sciatica or, perhaps, nerve abutment from her known herniated discs. At this time she is not exhibiting any signs of cauda equina and is ambulatory without assistance. I will treat her with flexeril and prednisone and have her take tylenol/NSAIDs for discomfort and have her f/u with Neurosurgery given her hx of back surgeries. Advised to go to the ED if her symptoms worsen or if she develops new red flag symptoms. - Differential Dx/Diagnosis Provider Diagnosis: Low back pain potentially associated with radiculopathy Discharge - Sign-Out/Discharge Documenting (check all that apply): Patient Departure All imaging exams completed and their final reports reviewed: Yes - Discharge Plan Condition: Stable Disposition: HOME Prescriptions: Cyclobenzaprine TAB* [Flexeril 10 MG TAB*] 10 mg PO BID PRN #14 tab PRN Reason: Pain predniSONE TAB* [Deltasone 20 MG TAB*] 20 mg PO DAILY #15 tab Patient Education Materials: Sciatica (ED) Forms: *Work Release Referrals: Annabelle Altman DO [Primary Care Provider] - Bryce Faustin MD [Medical Doctor] - As Soon As Possible Additional Instructions: If you develop a fever, shortness of breath, chest pain, increasing numbness/ weakness, or loss of bowel/bladder control, new or worsening symptoms - please call your PCP or go to the ED immediately. Your blood pressure was high at todays visit. Please see your primary provider within 4 weeks for recheck and re-evaluation. 1) Rest and apply heat to your lower back and hip to reduce pain 2) Do not take any NSAIDs (advil, aleve, ibuprofen) for the remainder of today as you were given an injection of pain medication today that may interact. It is safe to resume NSAID type medications tomorrow as directed. 3) I strongly recommend that you call Neurosurgery at the number below to schedule a follow up appointment as soon as possible given your history of back surgeries. - Billing Disposition and Condition Condition: STABLE Disposition: Home - Attestation Statements Provider Attestation: I was available for consult. This patient was seen by the RITU. The patient was not presented to, seen by, or examined by me. -Juan
[2018-12-10] MEDS ORDERED: Ketorolac INJ* 60 MG/2 ML VIAL IM ONE (11:15)
== END 2018-12-10 12:30 | disposition home or self-care (01) ==
LOC: UCEAST 10:36
DX: M54.5 Low back pain (principal); M79.605 Pain in left leg; F32.9 Major depressive disorder, single episode, unspecified; Z87.891 Personal history of nicotine dependence; Z88.0 Allergy status to penicillin
CPT/HCPCS: 72110; 96372; 99212; G0463; J1885

== ENCOUNTER 2019-03-25 19:19 | Emergency (ER) | payer OTHER ==
[2019-03-25] MEDS ORDERED: Albuterol/Ipratropium NEB.SOL* Albuterol 2.5 MG/Ipratropium 0.5 MG 3 ML INH ONE (22:12)
[2019-03-25] MEDS ORDERED: guaiFENesin/CODIENE 100mg/10mg 5 ML UDC PO ONE (22:12)
--- NOTE | 2019-03-25 22:18 | ED ---
Respiratory - HPI Summary HPI Summary: 28-year-old female presents with cough for the past 2 days. She states she been feeling short of breath with the cough. She denies any chest pain. She denies any bowel pain. No nausea or vomiting. she admits to a sore throat. No fever. No sinus congestion. She has no medical conditions. Was a smoker but has since quit. 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 - History of Current Complaint Chief Complaint: EDUpperRespComplaint Stated Complaint: COUGH/DIFFICULTY BREATHING PER PT Time Seen by Provider: 03/25/19 21:59 Pain Intensity: 5 - Allergy/Home Medications Allergies/Adverse Reactions: Allergies Allergy/AdvReac Type Severity Reaction Status Date / Time coconut oil Allergy Severe Rash Verified 03/25/19 19:24 Penicillins Allergy Intermediate Rash Verified 03/25/19 19:24 PMH/Surg Hx/FS Hx/Imm Hx Endocrine/Hematology History: Denies: Hx Anticoagulant Therapy, Hx Diabetes, Hx Thyroid Disease Cardiovascular History: Denies: Hx Cardiac Arrest, Hx Myocardial Infarction GI History: Reports: Hx Irritable Bowel Denies: Hx Cirrhosis, Hx Crohn's Disease, Hx Gastroesophageal Reflux Disease , Hx Hiatal Hernia, Hx Ulcer History: Reports: Hx Kidney Stones - 2014 Denies: Hx Dialysis, Hx Kidney Infection Comment Only: Other Problems/Disorders - kidney stones removed 2014 Musculoskeletal History: Denies: Hx Arthritis, Hx Bursitis, Hx Tendonitis Sensory History: Reports: Hx Contacts or Glasses - glasses Denies: Hx Hearing Aid Opthamlomology History: Reports: Hx Contacts or Glasses - glasses Psychiatric History: Reports: Hx Anxiety, Hx Depression - Cancer History Hx Chemotherapy: No - Surgical History Surgery Procedure, Year, and Place: gallbladder - 2009. disc surgery 2011. lithotripsy 2014. uterine polyps removed - 2012 Hx Anesthesia Reactions: No - Immunization History Date of Influenza Vaccine: 02/2017 Infectious Disease History: No Infectious Disease History: Denies: Hx Hepatitis, Traveled Outside the [place] in Last 30 Days - Family History Known Family History: Positive: Hypertension, Diabetes Negative: Cardiac Disease, Respiratory Disease, Seizure Disorder, Blood Disorder Family History: no cardio vascular issues in family lineage - Social History Alcohol Use: None Substance Use Type: Reports: None Smoking Status (MU): Former Smoker Amount Used/How Often: 2 cigs per week Review of Systems Negative: Fever Positive: Sore Throat, Nasal Discharge Negative: Chest Pain Positive: Shortness Of Breath, Cough All Other Systems Reviewed And Are Negative: Yes Physical Exam Triage Information Reviewed: Yes Vital Signs On Initial Exam: Initial Vitals Temp Pulse Resp BP Pulse Ox 97.0 F 100 16 124/77 99 03/25/19 19:20 03/25/19 19:20 03/25/19 19:20 03/25/19 19:20 03/25/19 19:20 Vital Signs Reviewed: Yes Appearance: Positive: Well-Appearing Skin: Positive: Warm, Dry Head/Face: Positive: Normal Head/Face Inspection Eyes: Positive: Normal, EOMI, ANNA, Conjunctiva Clear ENT: Positive: Normal ENT inspection, Pharyngeal erythema, TMs normal Neck: Positive: Supple, Nontender, No Lymphadenopathy Respiratory/Lung Sounds: Positive: Clear to Auscultation, Breath Sounds Present Cardiovascular: Positive: Normal, RRR Abdomen Description: Positive: Nontender, Soft Bowel Sounds: Positive: Present Musculoskeletal: Positive: Normal Neurological: Positive: Normal Psychiatric: Positive: Normal Procedures - Sedation Patient Received Moderate/Deep Sedation with Procedure: No Diagnostics - Vital Signs Vital Signs Temp Pulse Resp BP Pulse Ox 03/25/19 21:45 99.7 F 94 16 125/68 98 03/25/19 19:20 97.0 F 100 16 124/77 99 - Laboratory Lab Statement: Any lab studies that have been ordered have been reviewed, and results considered in the medical decision making process. - Radiology chest Radiology Interpretation Completed By: ED Physician Summary of Radiographic Findings: no pneumonia Re-Evaluation - Re-Evaluation First Eval Re-Evaluation Time: 23:03 Change: Improved Comment: feeling better Disposition - Course Course Of Treatment: 28-year-old female presents with cough for the past 2 days. She states she been feeling short of breath with the cough. She denies any chest pain. She denies any bowel pain. No nausea or vomiting. she admits to a sore throat. No fever. No sinus congestion. She has no medical conditions. Was a smoker but has since quit. 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 On exam lungs clear auscultation. Chest x-ray shows no pneumonia. We'll treat conservatively with inhaler and cough medication. Patient understands agrees with plan. - Differential Dx - Cardiopulmonary Differential Diagnoses - Cardiopulmonary: Bronchitis, Influenza, Lower Resp Infection - Diagnoses Provider Diagnoses: Bronchitis Discharge ED - Sign-Out/Discharge Documenting (check all that apply): Patient Departure - Discharge Plan Condition: Good Disposition: HOME Prescriptions: Benzonatate CAP* [Tessalon 100 MG CAP*] 100 mg PO TID #21 cap predniSONE TAB* [Deltasone TAB*] 50 mg PO DAILY #4 tab Patient Education Materials: Acute Bronchitis (ED) Referrals: Annabelle Altman DO [Primary Care Provider] - Additional Instructions: Use Tessalon three times a day for cough Use inhaler one puff every 4 hours for cough as needed Take steroid once a day for 5 days Use saline in the nose Follow up with primary care physician in 5 days Return to ED if develop any new or worsening symptoms - Billing Disposition and Condition Condition: GOOD Disposition: Home
[2019-03-25] MEDS ORDERED: predniSONE TAB* 20 MG PO ONE (22:59)
[2019-03-25] MEDS ORDERED: A lbuterol Hfa (PREPAK) 1 MDI - ED TAKE HOME DISPENSING ONLY INHH ONE (23:00)
[2019-03-25 23:24] VITALS: BP 119/67
== END 2019-03-25 23:12 | disposition home or self-care (01) ==
LOC: ED 19:19
DX: J40 Bronchitis, not specified as acute or chronic (principal); R05 Cough; J02.9 Acute pharyngitis, unspecified; Z87.891 Personal history of nicotine dependence; F41.9 Anxiety disorder, unspecified; F32.9 Major depressive disorder, single episode, unspecified; Z87.442 Personal history of urinary calculi
CPT/HCPCS: 71046; 99283; A9270-GY; J7512

== ENCOUNTER 2019-04-09 20:58 | Emergency (ER) | payer OTHER ==
[2019-04-09 21:37] VITALS: BP 139/97
[2019-04-09] MEDS ORDERED: Ketorolac INJ* 30 MG/ML 1 ML VIAL IM ONE (21:49)
--- NOTE | 2019-04-09 21:56 | UC ---
Back Pain HPI - HPI Summary HPI Summary: The patient is a 28-year-old female with right lower back pain radiating to her right buttocks times one week. She has a long history of back problems and has just had 2 surgeries on her lumbar spine. She states this does not feel like her typical sciatic pain. She has been taking 1 Flexeril a day and to 600 mg Motrin a day without much relief. She has had no recent injury. She has no bowel or bladder dysfunction. She has pain with bending twisting and changing positions. - History of Current Complaint Chief Complaint: UCBackPain Stated Complaint: LOWER BACK PAIN Time Seen by Provider: 04/09/19 21:49 Hx Obtained From: Patient Hx Last Menstrual Period: 12/02/18 Onset/Duration: Gradual Onset, Lasting Days Timing: Constant Severity Initially: Moderate Severity Currently: Moderate Pain Intensity: 6 Pain Scale Used: 0-10 Numeric Back Pain: Is Diffuse Character: Aching, Spasmodic, Stiffness Aggravating Factor(s): Movement, Lifting, Bending Alleviating Factor(s): Rest Associated Signs And Symptoms: Negative: Fever, Weakness, Numbness, Tingling, Abdominal Pain, Flank Pain, Bladder Incontinence, Bowel Incontinence, Weight Loss - Allergies/Home Medications Allergies/Adverse Reactions: Allergies Allergy/AdvReac Type Severity Reaction Status Date / Time coconut oil Allergy Severe Rash Verified 03/25/19 19:24 Penicillins Allergy Intermediate Rash Verified 03/25/19 19:24 diphenhydramine Allergy Altered Verified 04/09/19 21:38 [From Benadryl] Mental Status PMH/Surg Hx/FS Hx/Imm Hx Previously Healthy: Yes GI/ History: Kidney Stones Psychological History: Anxiety, Depression Other History Of: Negative For: HIV, Hepatitis B, Anticoagulant Therapy - Surgical History Surgical History: Yes Surgery Procedure, Year, and Place: gallbladder - 2009. disc surgery 2011. lithotripsy 2014. uterine polyps removed - 2012 - Family History Known Family History: Positive: Hypertension, Diabetes Negative: Cardiac Disease, Respiratory Disease, Seizure Disorder, Blood Disorder Family History: no cardio vascular issues in family lineage - Social History Alcohol Use: None Substance Use Type: None Smoking Status (MU): Current Every Day Smoker Amount Used/How Often: 2 cigs per week - Immunization History Most Recent Influenza Vaccination: 2017 Most Recent Pneumonia Vaccination: never Review of Systems All Other Systems Reviewed And Are Negative: Yes Constitutional: Positive: Negative Skin: Positive: Negative Eyes: Positive: Negative ENT: Positive: Negative Respiratory: Positive: Negative Cardiovascular: Positive: Negative Gastrointestinal: Positive: Negative Genitourinary: Positive: Negative Motor: Positive: Negative Neurovascular: Positive: Negative Musculoskeletal: Positive: Myalgia - right lower back and buttock Neurological: Positive: Negative Psychological: Positive: Negative Physical Exam Triage Information Reviewed: Yes Appearance: Well-Appearing, No Pain Distress, Well-Nourished Vital Signs: Initial Vital Signs Temp 99.4 F 04/09/19 21:30 Pulse 87 04/09/19 21:30 Resp 20 04/09/19 21:30 BP 139/97 04/09/19 21:30 Pulse Ox 98 04/09/19 21:30 Vital Signs Reviewed: Yes Eyes: Positive: Conjunctiva Clear ENT: Positive: Hearing grossly normal, Uvula midline. Negative: Nasal congestion, Nasal drainage, Tonsillar swelling, Tonsillar exudate, Sinus tenderness Neck: Positive: Supple, Nontender, No Lymphadenopathy Respiratory: Positive: Lungs clear, Normal breath sounds, No respiratory distress Cardiovascular: Positive: RRR, No Murmur Neurological Exam: Other - neg SLR, absent knee jerk R, + knee jerk L, slow wode based gait Neurological: Positive: Alert Psychological Exam: Normal Skin Exam: Normal Images Front/Back of Body, Lg (Blanco): 1 - pain/tenderness Back Pain Course/Dx - Differential Dx/Diagnosis Provider Diagnosis: Acute lumbar myofascial strain Discharge ED - Sign-Out/Discharge Documenting (check all that apply): Patient Departure All imaging exams completed and their final reports reviewed: No Studies - Discharge Plan Condition: Stable Disposition: HOME Prescriptions: Naproxen [Naproxen 500 mg tab] 500 mg PO BID PRN #20 tablet PRN Reason: Pain Patient Education Materials: Low Back Strain (ED) Forms: *Work Release Referrals: Myles Nichols MD [Primary Care Provider] - 1 Week Additional Instructions: PT consult you may increase your flexeril to three times daily on your days off if needed - Billing Disposition and Condition Condition: STABLE Disposition: Home
== END 2019-04-09 22:09 | disposition home or self-care (01) ==
LOC: UCEAST 20:58
DX: S39.012A Strain of muscle, fascia and tendon of lower back, initial encounter (principal); Y92.9 Unspecified place or not applicable; Z98.890 Other specified postprocedural states; Z88.0 Allergy status to penicillin; Z88.8 Allergy status to other drugs, medicaments and biological substances; Z87.442 Personal history of urinary calculi; F17.210 Nicotine dependence, cigarettes, uncomplicated; X58.XXXA Exposure to other specified factors, initial encounter
CPT/HCPCS: 96372; 99212; G0463; J1885

== ENCOUNTER 2019-06-27 15:41 | Emergency (ER) | payer OTHER ==
[2019-06-27 16:52] VITALS: BP 122/63
[2019-06-27] MEDS ORDERED: Acetaminophen TAB* 325 MG PO ONE (17:06)
--- NOTE | 2019-06-27 17:09 | UC ---
Dental HPI - HPI Summary HPI Summary: Right lower wisdom tooth removed Thursday. Had 2 days of norco--now out. Pain worsening [ End ] - History of Current Complaint Chief Complaint: UCDentalProblem Stated Complaint: RT SIDE DENTAL PAIN Time Seen by Provider: 06/27/19 16:39 Hx Obtained From: Patient Hx Last Menstrual Period: 12/02/18 ?: No Onset/Duration: Sudden Onset, Lasting Hours Severity: Severe Pain Intensity: 8 Related History: Previous Dental Care on Same Tooth - Allergies/Home Medications Allergies/Adverse Reactions: Allergies Allergy/AdvReac Type Severity Reaction Status Date / Time coconut oil Allergy Severe Rash Verified 06/27/19 16:49 Penicillins Allergy Intermediate Rash Verified 06/27/19 16:49 diphenhydramine Allergy Altered Verified 06/27/19 16:49 [From Benadryl] Mental Status Home Medications: Home Medications Hydrocodone/Acetaminophen [Hydrocodone/Acetaminophen 5-325 mg] 1 tab PO Q8HR PRN 06/27/19 [History Confirmed 06/27/19] Ibuprofen TAB* [Advil TAB*] 800 mg PO ONCE 06/27/19 [History Confirmed 06/27/19] PMH/Surg Hx/FS Hx/Imm Hx Previously Healthy: Yes Other History Of: Negative For: HIV, Hepatitis B, Anticoagulant Therapy - Surgical History Surgical History: Yes Surgery Procedure, Year, and Place: gallbladder - 2009. disc surgery 2011. lithotripsy 2014. uterine polyps removed - 2012 - Family History Known Family History: Positive: Hypertension, Diabetes Negative: Cardiac Disease, Respiratory Disease, Seizure Disorder, Blood Disorder Family History: no cardio vascular issues in family lineage - Social History Alcohol Use: None Substance Use Type: None Smoking Status (MU): Current Every Day Smoker Amount Used/How Often: 2 cigs per week - Immunization History Most Recent Influenza Vaccination: 2017 Most Recent Pneumonia Vaccination: never Review of Systems All Other Systems Reviewed And Are Negative: Yes ENT: Positive: Dental Pain Is Patient Immunocompromised?: No Physical Exam Triage Information Reviewed: Yes Appearance: Well-Appearing, Well-Nourished, Pain Distress Vital Signs: Initial Vital Signs Temp 98.2 F 06/27/19 16:50 Pulse 60 06/27/19 16:50 Resp 16 06/27/19 16:50 BP 122/63 06/27/19 16:50 Pulse Ox 100 06/27/19 16:50 Vital Signs Reviewed: Yes Eye Exam: Normal ENT Exam: Normal Dental: Positive: Other: - extraction site is non red, but very tender, buccal swelling noted Neck exam: Normal Respiratory Exam: Normal Cardiovascular Exam: Normal Abdominal Exam: Normal Skin Exam: Normal Dental Complaint Course/Dx - Course Course Of Treatment: history obtained, exam performed ,meds reviewed treated for pain, receommend follow up with the dentist - Differential Dx/Diagnosis Differential Diagnosis/Dx: Post Extraction Pain Provider Diagnosis: Dental implant pain Discharge ED - Sign-Out/Discharge Documenting (check all that apply): Patient Departure All imaging exams completed and their final reports reviewed: No Studies - Discharge Plan Condition: Stable Disposition: HOME Patient Education Materials: Toothache (ED) Referrals: Myles Nichols MD [Primary Care Provider] - Additional Instructions: 1. continue with the dentist recommendations for self care 2. continue with 400 mg of ibuprofen every 4 hours and 100 mg of tylenol every 6 hours for the next few days - Billing Disposition and Condition Condition: STABLE Disposition: Home
[2019-06-27] MEDS ORDERED: Acetaminophen / Codeine* #3 (300 MG/30 MG) TAB PO ONE (17:14)
[2019-06-27] MEDS ORDERED: Lidocaine 2% VISCOUS* 15 ML UDC PO ONE (17:14)
== END 2019-06-27 17:44 | disposition home or self-care (01) ==
LOC: UCCORT 15:41
DX: M27.69 Other endosseous dental implant failure (principal); F17.210 Nicotine dependence, cigarettes, uncomplicated; Z88.0 Allergy status to penicillin; Z88.8 Allergy status to other drugs, medicaments and biological substances; Z91.018 Allergy to other foods
CPT/HCPCS: 99212; A9270-GY; G0463

== ENCOUNTER 2020-07-02 08:06 | Inpatient (IN) ==
[2020-07-02] MEDS ORDERED: Buffered Lidocaine 1% SYRIN 1 ml INTRADERM ONE (09:25)
[2020-07-02] MEDS ORDERED: Lactated Ringers 1000 ml BAG 1,000 ML IV ONE ×2 (09:25→16:59)
[2020-07-02 10:44] LABS: Urine Benzodiazepine Screen None Detected (None Detect); Urine Cannabinoids Screen None Detected (None Detect); Urine Opiates Screen None Detected (None Detect)
[2020-07-02 11:49] LABS: ABS Eosinophils 0.1 10^3/ul (0-0.6); ABS Lymphocytes 1.9 10^3/ul (1.0-4.8); ABS Monocytes 0.5 10^3/ul (0-0.8); ABS Neutrophils 7.2 10^3/ul (1.5-7.7); Eosinophil % 0.5 %; Hematocrit 33 % (35-47); Lymphocyte % 19.5 %; Mean Corpuscular HGB Conc 33 g/dL (31-36); Mean Corpuscular Hemoglobin 26 pg (27-31); Mean Corpuscular Volume 79 fL (80-97); Mean Platelet Volume 10.4 fL (7.4-10.4); Platelet Count 115 10^3/uL (150-450); Red Blood Count 4.21 10^6 /uL (3.70-4.87); Red Cell Distribution Width 15 % (10-15); White Blood Count 9.7 10^3/uL (3.5-10.8)
[2020-07-02] MEDS: Lactated Ringers 1000 ml BAG 1,000 ML IV SCH ×2 (14:50→16:20)
[2020-07-02] MEDS ORDERED: Oxytocin in LR 20 UNITS/1,000 ML BAG IVPB SCH ×2 (15:00→20:00)
[2020-07-02] MEDS ORDERED: OBEPIDURAL 250 ML EPIDURAL ONE (16:05)
[2020-07-02] MEDS ORDERED: Phenylephrine 40 mcg/mL 10mL (400mcg) SYRINGE IV PUSH PRN ×2 (16:59)
[2020-07-02] MEDS ORDERED: Sodium Citrate/Citric Acid LIQ 15 ML UDC PO PRN (16:59)
[2020-07-02] MEDS ORDERED: Lactated Ringers 1000 ml BAG 1,000 ML IV SCH ×2 (17:00→20:00)
[2020-07-02] MEDS ORDERED: OBEPIDURAL 250 ML EPIDURAL SCH (17:00)
[2020-07-02] MEDS ORDERED: Witch Hazel PAD JAR TOPICAL PRN (19:31)
[2020-07-02] MEDS ORDERED: Glycerin ADULT 2.4 gm SUPP PR PRN (19:31)
[2020-07-02] MEDS ORDERED: Dibucaine 1% OINT 28.35 GM TUBE PR PRN (19:31)
[2020-07-02] MEDS ORDERED: Ammonia Inhalant 1 EA AMP ONE (20:56)
[2020-07-03 06:42] LABS: ABS Basophils 0.1 10^3/ul (0-0.2); ABS Eosinophils 0.1 10^3/ul (0-0.6); ABS Lymphocytes 2.9 10^3/ul (1.0-4.8); ABS Monocytes 0.7 10^3/ul (0-0.8); ABS Neutrophils 7.7 10^3/ul (1.5-7.7); Eosinophil % 0.5 %; Hematocrit 28 % (35-47); Hemoglobin 9.4 g/dL (12.0-16.0); Lymphocyte % 25.6 %; Mean Corpuscular HGB Conc 33 g/dL (31-36); Mean Corpuscular Hemoglobin 26 pg (27-31); Mean Corpuscular Volume 78 fL (80-97); Mean Platelet Volume 10.4 fL (7.4-10.4); Platelet Count 109 10^3/uL (150-450); Red Blood Count 3.64 10^6 /uL (3.70-4.87); Red Cell Distribution Width 14 % (10-15); White Blood Count 11.4 10^3/uL (3.5-10.8)
[2020-07-04 07:59] VITALS: BP 140/71
[2020-07-04 08:11] LABS: ABS Eosinophils 0.1 10^3/ul (0-0.6); ABS Lymphocytes 2.7 10^3/ul (1.0-4.8); ABS Monocytes 0.5 10^3/ul (0-0.8); ABS Neutrophils 5.9 10^3/ul (1.5-7.7); Hematocrit 29 % (35-47); Hemoglobin 9.7 g/dL (12.0-16.0); Lymphocyte % 29.2 %; Mean Corpuscular HGB Conc 33 g/dL (31-36); Mean Corpuscular Hemoglobin 27 pg (27-31); Mean Corpuscular Volume 80 fL (80-97); Mean Platelet Volume 11.3 fL (7.4-10.4); Platelet Count 113 10^3/uL (150-450); Red Blood Count 3.68 10^6 /uL (3.70-4.87); Red Cell Distribution Width 14 % (10-15); White Blood Count 9.3 10^3/uL (3.5-10.8)
== END 2020-07-04 13:25 | disposition home or self-care (01) | DRG 806 ==
LOC: MCHOBOUT 08:06 → MCHOB 09:41
PROVIDERS: ADMIT Obstetrics & Gynecology; ATTEND Obstetrics & Gynecology